=== PATIENT | male | born 1935 | race Hispanic/Latino ===

== ENCOUNTER → 2017-08-18 | Outpatient (CLI) | payer MEDICARE ==
[~2017-08-18] MED LIST: ACETAMINOPHEN325 M1 PO; ASPIR-LOW81 MG PO; FERROUS SULFAT325 M1 PO; FINASTERIDE5 MG PO; FUROSEMIDE40 MG PO; GABAPENTIN100 MG PO; KLONOPIN0.5 MG PO; LATANOPROST2.5 ML OP; LIPITOR10 MG PO; LOPERAMIDE2 MG PO; METOPROLOL TART25 MG PO; MULTI-VITAMIN1 EACH PO; NAMENDA10 MG PO; NORCO 10-325 T1 EACH PO; PANTOPRAZOLE SO40 MG PO; POTASSIUM CHLO20 ME1 PO; REMERON15 MG PO; SENOKOT8.6 MG PO; TAMSULOSIN HCL0.4 MG PO; XARELTO20 MG PO
--- NOTE | 2017-08-18 11:56 | Diagnostic Imaging Report ---
EXAM: Renal Ultrasound INDICATION: \S\MIXED INCONTINENCE COMPARISON: None TECHNIQUE: Transverse and longitudinal images of the kidneys and bladder were obtained. FINDINGS: Right Kidney: Size: 11.5 cm Echogenicity: Normal Parenchymal thickness: Normal Collecting system: No hydronephrosis Stones: None Cyst/Mass: None Left Kidney: Size: 10.9 cm Echogenicity: Normal Parenchymal thickness: Normal Collecting system: No hydronephrosis Stones: None Cyst/Mass: None Bladder: Not fully distended and appears unremarkable. IMPRESSION: Unremarkable renal ultrasound exam. Signed by: Dr. Jn Wright MD on 08/18/2017 11:53 AM
== END ==
LOC: US 09:17
PROVIDERS: ATTEND Urology
DX: N39.46 Mixed incontinence (principal)
CPT/HCPCS: 76770

== ENCOUNTER 2017-09-16 15:36 | Inpatient (IN) | payer MEDICARE ==
[~2017-09-16] VITALS: Ht 175.3 cm; Wt 84.1 kg
--- OUTSIDE RECORDS SUMMARY | 2017-09-16 15:39 | XMS REPORT ---
Author Author [facility] Address Unknown Phone Unavailable Care Team Providers Care Paper Box Cutter Name Role Phone RADHA JUNG Unavailable Unavailable Problems This patient has no known problems. Allergies, Adverse Reactions, Alerts This patient has no known allergies or adverse reactions. Medications This patient has no known medications. Results Test Description Test Time Test Comments Text Results Atomic Results Result Comments US RENAL RETROPERITONEAL COMP [place] [address] Patient Name: RAYNA AYALA MR #: [id number] : 1935 Age/Sex: 82/M Req #: [id number] Adm Physician: Ordered by: RADHA JUNG MD Report #: [id number] Location: US Room/Bed: Procedure: [id number] US/US RENAL RETROPERITONEAL COMP Exam Date: Exam Time: REPORT STATUS: Signed EXAM: Renal Ultrasound INDICATION: COMPARISON: None TECHNIQUE: Transverse and longitudinal images of the kidneys and bladder were obtained. FINDINGS: Right Kidney: Size: 11.5 cm Echogenicity: Normal Parenchymal thickness: Normal Collecting system: No hydronephrosis Stones: None Cyst/Mass: None Left Kidney: Size: 10.9 cm Echogenicity: Normal Parenchymal thickness: Normal Collecting system: No hydronephrosis Stones: None Cyst/Mass: None Bladder: Not fully distended and appears unremarkable. IMPRESSION: Unremarkable renal ultrasound exam. Signed by: Dr. Jn Wright MD on 08/18/2017 11:53 AM Dictated By: JN WRIGHT MD [id number] Transcribed By: STEFFANY on 08/18/17 115 COPY TO: RADHA JUNG MD
[2017-09-16] MEDS ORDERED: CEFTRIAXONE SOD 1 GM VIAL IM ONE (16:15)
[2017-09-16 16:21] LABS: BASOPHILS % 0.3 % (0.0-1.0); HEMATOCRIT 44.6 % (38.2-49.6); HEMOGLOBIN 14.6 g/dL (14.0-18.0); LYMPHOCYTES # (AUTO) 0.2 (1.0-3.2); LYMPHOCYTES % 2.6 % (18.0-39.1); MEAN CORPUSCULAR HEMOGLOBIN 30.4 pg (28-32); MEAN CORPUSCULAR HGB CONC 32.7 g/dL (31-35); MEAN CORPUSCULAR VOLUME 92.9 fL (81-99); MONOCYTES # (AUTO) 0.5 (0.2-0.8); MONOCYTES % 5.8 % (4.4-11.3); NEUTROPHILS # (AUTO) 8.5 (2.1-6.9); NEUTROPHILS % 90.8 % (38.7-80.0); PLATELET COUNT 220 x10e3/uL (140-360); RED CELL DISTRIBUTION WIDTH 18.6 % (11.7-14.4)
[2017-09-16 16:22] LABS: BILIRUBIN,URINE NEGATIVE (NEGATIVE); CLARITY,URINE HAZY (CLEAR); COLOR,URINE YELLOW (YELLOW); KETONES,URINE TRACE (NEGATIVE); LEUKOCYTE ESTERASE ,URINE 2+ (NEGATIVE); NITRITE,URINE NEGATIVE (NEGATIVE); PROTEIN,URINE DIPSTICK NEGATIVE (NEGATIVE); URINE UROBILINOGEN 1 mg/dL (0.2 - 1)
[2017-09-16 16:27] LABS: INR 2.23; PROTHROMBIN TIME 23.2 seconds (11.9-14.5)
[2017-09-16 16:34] LABS: AMORPHOUS SEDIMENT,URINE MODERATE (FEW); BACTERIA,URINE MANY /HPF
[2017-09-16 16:34] LABS: ALANINE AMINOTRANSFERASE 25 IU/L (0-55); ALBUMIN 2.6 g/dL (3.5-5.0); ALBUMIN/GLOBULIN RATIO 0.7 (0.8-2.0); ALKALINE PHOSPHATASE 273 IU/L (40-150); ANION GAP 11.6 mmol/L (8-16); BLOOD UREA NITROGEN 21 mg/dL (7-26); BUN/CREATININE RATIO 22 (6-25); CALCIUM 8.6 mg/dL (8.4-10.2); CARBON DIOXIDE 30 mmol/L (22-29); CHLORIDE 99 mmol/L (98-107); CREATINE KINASE 16 IU/L (30-200); CREATININE, SERUM 0.95 mg/dL (0.72-1.25); EST GLOMERULAR FILTRATION RATE > 60 ML/MIN (60-); GLUCOSE 121 mg/dL (74-118); POTASSIUM 3.6 mmol/L (3.5-5.1); SODIUM 137 mmol/L (136-145)
--- NOTE | 2017-09-16 16:42 | Diagnostic Imaging Report ---
Examination: Single AP view of the chest. COMPARISON: None. INDICATION: Fever, AMS IMPRESSION: 1. Lines and Tubes: Left upper chest multilead cardiac device. 2. Enlarged cardiac silhouette, central pulmonary venous congestion and mild perihilar interstitial edema, likely representing mildly decompensated CHF.. 3. No consolidation or effusion. 4. No acute bony abnormalities. Signed by: Dr. Micha Bell M.D. on 09/16/2017 4:38 PM
[2017-09-16] MEDS ORDERED: DEXTROSE 50% SYRINGE 50 ML IV PRN (17:15)
[2017-09-16] MEDS ORDERED: ASPIRIN 81 MG CHEW TAB PO ONE (17:15)
[2017-09-16] MEDS ORDERED: NORCO 10-325 T1 EACH PO (17:21)
[2017-09-16] MEDS ORDERED: KLONOPIN0.5 MG PO (17:21)
[2017-09-16] MEDS ORDERED: FUROSEMIDE40 MG PO (17:21)
[2017-09-16] MEDS ORDERED: NAMENDA10 MG PO (17:21)
[2017-09-16] MEDS ORDERED: MULTI-VITAMIN1 EACH PO (17:21)
[2017-09-16] MEDS ORDERED: METOPROLOL TART25 MG PO (17:21)
[2017-09-16] MEDS ORDERED: FINASTERIDE5 MG PO (17:21)
[2017-09-16] MEDS ORDERED: FERROUS SULFAT325 M1 PO (17:21)
[2017-09-16] MEDS ORDERED: ASPIR-LOW81 MG PO (17:21)
[2017-09-16] MEDS ORDERED: LATANOPROST2.5 ML OP (17:21)
[2017-09-16] MEDS ORDERED: GABAPENTIN100 MG PO (17:21)
[2017-09-16] MEDS ORDERED: LOPERAMIDE2 MG PO (17:21)
[2017-09-16] MEDS ORDERED: ACETAMINOPHEN325 M1 PO (17:26)
[2017-09-16] MEDS ORDERED: POTASSIUM CHLO20 ME1 PO (17:26)
[2017-09-16] MEDS ORDERED: PANTOPRAZOLE SO40 MG PO (17:26)
[2017-09-16] MEDS ORDERED: TAMSULOSIN HCL0.4 MG PO (17:26)
[2017-09-16] MEDS ORDERED: SENOKOT8.6 MG PO (17:26)
[2017-09-16] MEDS ORDERED: XARELTO20 MG PO (17:26)
[2017-09-16] MEDS: HYDROCODONE/APAP 10MG-325MG TAB PO PRN (17:30)
[2017-09-16] MEDS: SODIUM CHLORIDE 0.9% 1000ML 1,000 ML IV SCH (17:30)
[2017-09-16 20:54] VITALS: BP 161/67
[2017-09-16] MEDS: INSULIN REGULAR, HUMAN 100 UNIT/1 ML 3ML VIAL SQ SCH (21:00)
[2017-09-17] VITALS (8 sets, daily range): BP systolic 122–161; BP diastolic 56–80
--- NOTE | 2017-09-17 00:26 | Consultation ---
DATE OF CONSULTATION: September 16, 2017 CARDIOLOGY CONSULTATION NOTE REASON FOR CONSULTATION: Chest pain. HISTORY: Mr. Almeida is a patient of mine for the last several years. He comes into the emergency room from his [facility] with complaints of fever, shaking chills as well as chest pain. He has peripheral arterial disease. He underwent recent intervention on both his lower extremities successfully. He has bilateral transmet amputations. He lives in a fdc. At the time of admission, his temperature was 100 degrees Fahrenheit, and his chest x-ray showed mildly decompensated heart failure. PAST MEDICAL, SOCIAL, AND FAMILY HISTORY: Unchanged from prior visit. ALLERGIES: NO KNOWN DRUG ALLERGIES. REVIEW OF SYSTEMS: Unobtainable. PHYSICAL EXAMINATION: VITAL SIGNS: Temperature 100 degrees, heart rate 80, blood pressure 127/80. O2 sat is 96%. CARDIOVASCULAR: Regular rhythm. S4 gallop. LUNGS: Decreased breath sounds. Occasional rhonchi. EXTREMITIES: Pedal pulses are trace positive. LABORATORY DATA: Hemoglobin is 14.6. Serum creatinine is normal. Cardiac enzymes are negative. ASSESSMENT: 1. Atypical chest pain. 2. Peripheral arterial disease. 3. Atrial fibrillation. RECOMMENDATIONS: Anticoagulation should be continued. The patient was scheduled for a stress test in my office. We will perform this while he is inpatient in the hospital. I thank Dr. Lakhani for this consultation. Job#: [id number]
[2017-09-17 03:27] LABS: BASOPHILS % 0.3 % (0.0-1.0); EOSINOPHILS % 0.1 % (0.0-6.0); HEMOGLOBIN 14.5 g/dL (14.0-18.0); LYMPHOCYTES # (AUTO) 0.4 (1.0-3.2); LYMPHOCYTES % 4.4 % (18.0-39.1); MEAN CORPUSCULAR HEMOGLOBIN 30.7 pg (28-32); MEAN CORPUSCULAR VOLUME 93.2 fL (81-99); MONOCYTES # (AUTO) 0.8 (0.2-0.8); MONOCYTES % 8.1 % (4.4-11.3); NEUTROPHILS # (AUTO) 8.3 (2.1-6.9); NEUTROPHILS % 86.5 % (38.7-80.0); PLATELET COUNT 218 x10e3/uL (140-360); RED BLOOD COUNT 4.72 x10e6/uL (4.3-5.7); RED CELL DISTRIBUTION WIDTH 18.6 % (11.7-14.4)
[2017-09-17 03:28] LABS: CREATINE KINASE MB 1.1 ng/mL (0-5.0)
[2017-09-17 03:47] LABS: ANION GAP 15.7 mmol/L (8-16); BLOOD UREA NITROGEN 22 mg/dL (7-26); BUN/CREATININE RATIO 26 (6-25); CALCIUM 8.6 mg/dL (8.4-10.2); CARBON DIOXIDE 27 mmol/L (22-29); CHLORIDE 101 mmol/L (98-107); CREATININE, SERUM 0.86 mg/dL (0.72-1.25); EST GLOMERULAR FILTRATION RATE > 60 ML/MIN (60-); GLUCOSE 118 mg/dL (74-118); POTASSIUM 3.7 mmol/L (3.5-5.1); SODIUM 140 mmol/L (136-145)
[2017-09-17] MEDS: INSULIN REGULAR, HUMAN 100 UNIT/1 ML 3ML VIAL SQ SCH ×4 (07:30→19:59)
[2017-09-17] MEDS: HYDROCODONE/APAP 10MG-325MG TAB PO PRN (08:49)
[2017-09-17] MEDS: ASPIRIN 81 MG ENTERIC COATED PO SCH (08:49)
[2017-09-17 11:28] LABS: CREATINE KINASE MB 1.4 ng/mL (0-5.0)
[2017-09-17] MEDS ORDERED: LOPERAMIDE HCL 2 MG CAP PO PRN (11:45)
--- NOTE | 2017-09-17 12:50 | Diagnostic Imaging Report ---
EXAM: XR CHEST 1 VIEW DATE: 09/17/2017 7:00 AM INDICATION: CHF, fever COMPARISON: 09/16/2017 FINDINGS: Lines and Tubes: Left chest wall pacemaker with lead overlying right ventricle and coronary sinus. Heart and Mediastinum: Heart is enlarged. Tortuous aorta. Lungs and Pleura: Scattered mild to moderate bilateral airspace opacities. Bones and Soft Tissues: No acute findings. IMPRESSION: 1. Enlarged cardiac silhouette with mild to moderate edema. Superimposed pneumonia not excluded. Signed by: Dr. Nain Middleton MD on 09/17/2017 12:46 PM
[2017-09-17] MEDS: SODIUM CHLORIDE 0.9% 1000ML 1,000 ML IV SCH (13:12)
--- NOTE | 2017-09-17 15:36 | Progress Note ---
DATE: September 17, 2017 CARDIOLOGY PROGRESS NOTE SUBJECTIVE: Patient is without any complaints this morning. He denies any chest pain or shortness of breath. States that he is tired. CARDIOVASCULAR MEDICATIONS: Aspirin 81 mg p.o. daily. OBJECTIVE: VITAL SIGNS: Temperature 97.3, pulse 79, respiratory rate 18, blood pressure 130/60, oxygen saturation 96% on room air. GENERAL: Alert and oriented x2, resting comfortably in bed, does not appear to be in any acute distress. CARDIOVASCULAR: Regular rate and rhythm. S4 gallop. LUNGS: Diminished breath sounds posterior lower lobes, otherwise scattered rhonchi. No wheezing or crackles noted. ABDOMEN: Rounded, soft, nontender. EXTREMITIES: Lower extremities, trace pedal pulses. LABS: WBC 9.60, hemoglobin 14.5, hematocrit 44.0, and platelets 218. Sodium 140, potassium 3.7, BUN 22, creatinine 0.86. PT 23.2, INR 2.23. Chest x-ray reviewed from yesterday with no acute bony abnormality, no consolidation or effusion, central pulmonary venous congestion, mildly decompensated CHF. TELEMETRY: Ventricularly paced rhythm. ASSESSMENT 1. Atypical chest pain. 2. Peripheral arterial disease, status post multiple interventions recently. 3. Permanent atrial fibrillation. 4. Recent transmetatarsal amputation. RECOMMENDATIONS: We will be reconciling meds this morning. Continuation of home meds including anticoagulation. Scheduled for a stress test tomorrow morning. Monitor closely. We will continue to follow closely. Dictated By: Micheline Sanchez NP Job#: [id number] [facility]
[2017-09-17] MEDS: CLONAZEPAM 0.5 MG TAB PO SCH ×2 (16:49→20:42)
[2017-09-17] MEDS: GABAPENTIN 100 MG CAP PO SCH ×2 (16:49→20:42)
[2017-09-17] MEDS: CEFTRIAXONE SOD 1 GM VIAL IV SCH (16:49)
[2017-09-17] MEDS: FUROSEMIDE 20 MG TAB PO SCH (16:49)
[2017-09-17] MEDS: MEMANTINE 10 MG TAB PO SCH (16:49)
[2017-09-17] MEDS: LATANOPROST(OPTH) 2.5 ML BTL OP SCH ×2 (20:42→20:47)
[2017-09-17] MEDS: FINASTERIDE 5 MG TAB PO SCH (20:43)
[2017-09-18] VITALS (7 sets, daily range): BP systolic 131–153; BP diastolic 59–70
[2017-09-18] MEDS: INSULIN REGULAR, HUMAN 100 UNIT/1 ML 3ML VIAL SQ SCH ×4 (07:30→21:00)
[2017-09-18] MEDS: PANTOPRAZOLE SOD 40 MG TABEC PO SCH (07:30)
[2017-09-18] MEDS ORDERED: REGADENOSON 0.4 MG/5 ML SYR IV ONE (08:09)
[2017-09-18] MEDS: FUROSEMIDE 20 MG TAB PO SCH ×2 (09:00→16:24)
[2017-09-18] MEDS: GABAPENTIN 100 MG CAP PO SCH ×3 (09:00→22:17)
[2017-09-18] MEDS: POTASSIUM CHLORIDE 20 MEQ TAB CR PO SCH (09:00)
[2017-09-18] MEDS: ASPIRIN 81 MG CHEW TAB PO SCH (09:00)
[2017-09-18] MEDS: SENNOSIDES 8.6 MG TAB PO SCH (09:00)
[2017-09-18] MEDS: FERROUS SULFATE 325 MG TAB PO SCH (09:00)
[2017-09-18] MEDS: ASPIRIN 81 MG ENTERIC COATED PO SCH (09:00)
[2017-09-18] MEDS: TAMSULOSIN HCL 0.4 MG CAP PO SCH (09:00)
[2017-09-18] MEDS: MEMANTINE 10 MG TAB PO SCH ×2 (09:00→16:24)
[2017-09-18] MEDS: MULTIVITAMINS/MINERALS TAB PO SCH (09:00)
[2017-09-18] MEDS: RIVAROXABAN 20 MG TABLET PO SCH (09:00)
[2017-09-18] MEDS: METOPROLOL TARTRATE 25 MG TAB PO SCH (09:00)
[2017-09-18] MEDS: CLONAZEPAM 0.5 MG TAB PO SCH ×3 (09:00→22:17)
[2017-09-18] MEDS: CEFTRIAXONE SOD 1 GM VIAL IV SCH (16:24)
--- NOTE | 2017-09-18 19:35 | Cardiology Report ---
DATE OF STUDY: September 18, 2017 PROCEDURE TITLE Rest stress single isotope SPECT imaging with pharmacologic stress and gated SPECT imaging. INDICATIONS: Chest pain. PROCEDURE: Pharmacologic stress testing was performed with regadenoson per protocol. Heart rate was 80 beats per minute at rest and increased to 83 beats per minute during the regadenoson infusion. The rest blood pressure was is 130/70 and increased to 151/71 mmHg, which is a normal response. The patient did not develop any significant symptoms during the procedure. Resting electrocardiogram demonstrated V-paced. There were no ST segment changes consistent with myocardial ischemia. Occasional PVCs were noted in recovery. Myocardial perfusion imaging was performed at rest following the injection of 10.3 millicuries of tetrofosmin. At peak pharmacologic effect, the patient was injected with 29 mCi of tetrofosmin. Gated post stress tomographic imaging was performed. FINDINGS: The overall quality of the study is fair. Left ventricular cavity is noted to be normal size on the rest and stress studies. SPECT images demonstrate a small mild inferolateral perfusion defect at rest that improves but does not completely reverse with stress. Gated SPECT imaging demonstrates hypokinesis of the inferolateral wall. The left ventricular ejection pressure was calculated to be 57%. IMPRESSION: Myocardial perfusion imaging is abnormal. There is a small non-transmural scar in the inferolateral wall. Overall left ventricular systolic function is normal. Overall left ventricular systolic function was normal with regional wall abnormalities as documented above. Job#: [id number] GH cc: YI HARRIS MD MTDD
[2017-09-18] MEDS: LATANOPROST(OPTH) 2.5 ML BTL OP SCH (21:00)
[2017-09-18] MEDS: SODIUM CHLORIDE 0.9% 1000ML 1,000 ML IV SCH (22:16)
[2017-09-18] MEDS: FINASTERIDE 5 MG TAB PO SCH (22:17)
[2017-09-19] VITALS (8 sets, daily range): BP systolic 105–148; BP diastolic 57–73
[2017-09-19] MEDS ORDERED: MEROPENEM 1GM 100 ML IV SCH (04:30)
[2017-09-19] MEDS: SODIUM CHLORIDE 0.9% 1000ML 1,000 ML IV SCH (05:12)
[2017-09-19] MEDS ORDERED: MEROPENEM 1 GM VIAL ONE (05:54)
[2017-09-19] MEDS: INSULIN REGULAR, HUMAN 100 UNIT/1 ML 3ML VIAL SQ SCH ×4 (07:30→21:00)
[2017-09-19] MEDS: PANTOPRAZOLE SOD 40 MG TABEC PO SCH (10:18)
[2017-09-19] MEDS: FERROUS SULFATE 325 MG TAB PO SCH (10:18)
[2017-09-19] MEDS: TAMSULOSIN HCL 0.4 MG CAP PO SCH (10:18)
[2017-09-19] MEDS: ASPIRIN 81 MG ENTERIC COATED PO SCH (10:18)
[2017-09-19] MEDS: ASPIRIN 81 MG CHEW TAB PO SCH (10:18)
[2017-09-19] MEDS: MEMANTINE 10 MG TAB PO SCH ×2 (10:19→17:01)
[2017-09-19] MEDS: CLONAZEPAM 0.5 MG TAB PO SCH ×3 (10:19→22:30)
[2017-09-19] MEDS: POTASSIUM CHLORIDE 20 MEQ TAB CR PO SCH (10:19)
[2017-09-19] MEDS: FUROSEMIDE 20 MG TAB PO SCH ×2 (10:19→17:00)
[2017-09-19] MEDS: RIVAROXABAN 20 MG TABLET PO SCH (10:19)
[2017-09-19] MEDS: SENNOSIDES 8.6 MG TAB PO SCH (10:19)
[2017-09-19] MEDS: MULTIVITAMINS/MINERALS TAB PO SCH (10:19)
[2017-09-19] MEDS: GABAPENTIN 100 MG CAP PO SCH ×3 (10:19→22:30)
[2017-09-19] MEDS: METOPROLOL TARTRATE 25 MG TAB PO SCH (10:19)
--- NOTE | 2017-09-19 18:35 | Progress Note ---
DATE: September 19, 2017 CARDIOLOGY PROGRESS NOTE SUBJECTIVE: The patient denies chest pain or shortness of breath. OBJECTIVE VITALS: Temperature 97.9 degrees, pulse 80, respiratory rate 19, blood pressure 136/73, oxygen saturation 96% on room air. GENERAL: Awake, alert and in no acute distress. LUNGS: Clear to auscultation bilaterally. No wheezes or crackles. CARDIOVASCULAR: Normal rate. Regular rhythm. No murmur. ABDOMEN: Soft and nontender. EXTREMITIES: No edema. CARDIAC MEDICATIONS 1. Xarelto 20 mg p.o. daily. 2. Metoprolol tartrate 75 mg p.o. daily. 3. Lasix 20 mg p.o. b.i.d. 4. Aspirin 81 mg p.o. daily. LABS: None today. Telemetry is V-paced. IMPRESSION 1. Atypical chest pain. 2. Peripheral arterial disease: Status post multiple interventions. 3. Permanent atrial fibrillation. 4. Recent transmetatarsal amputation. RECOMMENDATIONS: Continue current cardiac medications. Stress test was without evidence of ischemia. The patient can be discharged from a cardiac standpoint. Thank you for this consult. We will continue to follow. Job#: [id number] OR
[2017-09-19] MEDS: MEROPENEM 1 GM VIAL IV SCH (19:19)
[2017-09-19] MEDS: LATANOPROST(OPTH) 2.5 ML BTL OP SCH (21:00)
[2017-09-19] MEDS: FINASTERIDE 5 MG TAB PO SCH (22:30)
[2017-09-20] VITALS (7 sets, daily range): BP systolic 131–169; BP diastolic 60–76
[2017-09-20] MEDS: SODIUM CHLORIDE 0.9% 1000ML 1,000 ML IV SCH (01:12)
[2017-09-20] MEDS: MEROPENEM 1 GM VIAL IV SCH ×2 (05:58→16:52)
[2017-09-20] MEDS: INSULIN REGULAR, HUMAN 100 UNIT/1 ML 3ML VIAL SQ SCH ×4 (07:30→21:00)
[2017-09-20] MEDS: TAMSULOSIN HCL 0.4 MG CAP PO SCH (09:48)
[2017-09-20] MEDS: PANTOPRAZOLE SOD 40 MG TABEC PO SCH (09:48)
[2017-09-20] MEDS: ASPIRIN 81 MG CHEW TAB PO SCH (09:48)
[2017-09-20] MEDS: FERROUS SULFATE 325 MG TAB PO SCH (09:48)
[2017-09-20] MEDS: METOPROLOL TARTRATE 25 MG TAB PO SCH (09:51)
[2017-09-20] MEDS: GABAPENTIN 100 MG CAP PO SCH ×3 (09:51→21:06)
[2017-09-20] MEDS: FUROSEMIDE 20 MG TAB PO SCH ×2 (09:51→16:52)
[2017-09-20] MEDS: POTASSIUM CHLORIDE 20 MEQ TAB CR PO SCH (09:51)
[2017-09-20] MEDS: MULTIVITAMINS/MINERALS TAB PO SCH (09:51)
[2017-09-20] MEDS: MEMANTINE 10 MG TAB PO SCH ×2 (09:51→16:52)
[2017-09-20] MEDS: CLONAZEPAM 0.5 MG TAB PO SCH ×3 (09:51→21:06)
[2017-09-20] MEDS: RIVAROXABAN 20 MG TABLET PO SCH (09:51)
[2017-09-20] MEDS: SENNOSIDES 8.6 MG TAB PO SCH (09:51)
--- NOTE | 2017-09-20 11:20 | Diagnostic Imaging Report ---
PROCEDURE:ABDOMINAL ULTRASOUND COMPARISON:None. INDICATIONS:r/o infection FINDINGS: Liver: 14.8 cm. Normal hepatic parenchymal echogenicity. No focal mass. Main portal vein: 1.4 cm. Hepatopedal flow. Gallbladder: Multiple echogenic mobile gallstones are present. No gallbladder wall thickening or pericholecystic fluid. The gallbladder is nondistended. Common Bile Duct: 3.0 mm. No echogenic filling defect. Sonographic Geiger's sign: Normal. Right kidney: 12.8 cm. No solid or cystic mass, echogenic calculi, or hydronephrosis. Normal parenchymal echogenicity. Left kidney: 11.7 cm. No solid or cystic mass, echogenic calculi, or hydronephrosis. Normal parenchymal echogenicity. Spleen: 13.0 cm. No focal mass. The pancreas, aorta, and inferior vena cava were insufficiently visualized for comment secondary to overlying bowel gas. Ascites: None. CONCLUSION: Cholelithiasis. No sonographic evidence of cholecystitis. Dictated by: Jeremy Rosales M.D. on 09/20/2017 at 11:21 Electronically approved by: Jeremy Rosales M.D. on 09/20/2017 at 11:21
[2017-09-20] MEDS: ACETAMINOPHEN 325 MG TAB PO PRN (12:57)
--- NOTE | 2017-09-20 15:14 | Consultation ---
DATE OF CONSULTATION: September 19, 2017 REASON FOR CONSULTATION: Recommendation for antibiotic. HISTORY OF PRESENT ILLNESS: Patient is an 82-year-old male, who comes to emergency room because of not feeling well, fever, chills. The patient who has history of dementia, is not able to provide any information. The patient has history of atrial fibrillation. He also has some chest pain. He was seen by cardiology. The patient was admitted. Infectious disease was consulted. Patient is not able to provide any information. LABORATORY DATA: Reviewed. His blood culture showing E. coli. His urine culture showing E. coli. data reviewed. MEDICATION: List reviewed. He is on meropenem, Namenda, Lasix, Senokot, multivitamin, iron sulfate, Tylenol. PAST MEDICAL HISTORY: As above. PAST SURGICAL HISTORY: Cannot be obtained. ALLERGIES: NKA. SOCIAL HISTORY: From the care home. PHYSICAL EXAMINATION GENERAL: He is currently alert, oriented, does not seem to be in acute distress. VITALS: Stable. Currently afebrile. HEENT: Anicteric. NECK: Supple. CHEST: Clear. ABDOMEN: Soft. IMPRESSIONS 1. Sepsis with Escherichia coli. He also had Proteus mirabilis in the urine, which was multidrug resistant. Agree with meropenem. Obtain ultrasound of the abdomen to rule out other possibilities because bacteria in the blood is different than the bacteria in the urine. Recheck blood cultures. Plan on 14 days of antibiotic. 2. Dementia. 3. Will follow with you. Job#: [id number] CQ
--- NOTE | 2017-09-20 17:58 | Progress Note ---
DATE: September 20, 2017 INFECTIOUS DISEASE PROGRESS NOTE SUBJECTIVE: Mr. Almeida is about the same, confused, does not seem to be in acute distress. No chest pain. REVIEW OF SYSTEMS: Otherwise unremarkable. Patient is still on Xarelto, Lasix and aspirin. His laboratory data reviewed. His white count 9.6, hemoglobin 14. His sodium 140, potassium 3.7, creatinine 0.86. Bilirubin of 2.6. Alkaline phosphatase of 273. He had ultrasound of the abdomen which showed cholelithiasis, no evidence of cholecystitis. PHYSICAL EXAMINATION GENERAL: He is currently alert, does not seem to be in acute distress. VITAL SIGNS: Stable. Afebrile. HEENT: He does not appear icteric. NECK: Supple. CHEST: Clear. HEART: S1 and S2. No S3 or S4, no murmur. ABDOMEN: Soft. Bowel sounds present. No tenderness. EXTREMITIES: No edema. SKIN: No rash. IMPRESSION: Sepsis with Escherichia coli. Will check blood cultures. Source unclear, may be UTI. Will check amylase, lipase and liver enzymes and will follow with you. Job#: [id number] EV
[2017-09-20] MEDS: LATANOPROST(OPTH) 2.5 ML BTL OP SCH (21:00)
[2017-09-20] MEDS: FINASTERIDE 5 MG TAB PO SCH (21:06)
--- NOTE | 2017-09-20 21:35 | Progress Note ---
DATE: September 20, 2017 CARDIOLOGY PROGRESS NOTE SUBJECTIVE: The patient denies chest pain or shortness of breath. OBJECTIVE VITAL SIGNS: Temperature 97.5 degrees, pulse 80, respiratory rate 10, blood pressure 159/65, oxygen saturation 96% on room air. GENERAL: Awake, alert and in no acute distress. LUNGS: Clear to auscultation bilaterally. No wheezes or crackles. CARDIOVASCULAR: Normal rate. Regular rhythm. No murmur. Normal S1 and S2. ABDOMEN: Soft and nontender. EXTREMITIES: Status post bilateral TMA. CARDIAC MEDICATIONS 1. Xarelto 20 mg p.o. daily. 2. Metoprolol tartrate 75 mg p.o. daily. 3. Lasix 20 mg p.o. b.i.d. 4. Aspirin 81 mg p.o. daily. LABS: None today. TELEMETRY: V-paced. IMPRESSION 1. Escherichia coli bacteremia. 2. Sepsis. 3. Atypical chest pain. 4. Peripheral arterial disease: Status post multiple interventions. 5. Permanent atrial fibrillation. 6. Recent transmetatarsal amputation. RECOMMENDATIONS: Continue current cardiac medications. Stress test is without evidence of ischemia. No further cardiac evaluation is indicated at this time. IV antibiotics per infectious disease. Thank you for this consult. We will continue to follow. Job#: [id number]
[2017-09-21] VITALS (7 sets, daily range): BP systolic 124–162; BP diastolic 58–68
[2017-09-21] MEDS: MEROPENEM 1 GM VIAL IV SCH ×2 (05:46→17:59)
[2017-09-21 06:00] LABS: BASOPHILS % 0.9 % (0.0-1.0); EOSINOPHILS # (AUTO) 0.3 (0.0-0.4); EOSINOPHILS % 6.2 % (0.0-6.0); HEMATOCRIT 42.5 % (38.2-49.6); HEMOGLOBIN 13.7 g/dL (14.0-18.0); LYMPHOCYTES # (AUTO) 0.7 (1.0-3.2); LYMPHOCYTES % 16.8 % (18.0-39.1); MEAN CORPUSCULAR HEMOGLOBIN 30.2 pg (28-32); MEAN CORPUSCULAR HGB CONC 32.2 g/dL (31-35); MEAN CORPUSCULAR VOLUME 93.8 fL (81-99); MONOCYTES # (AUTO) 0.5 (0.2-0.8); MONOCYTES % 11.3 % (4.4-11.3); NEUTROPHILS # (AUTO) 2.8 (2.1-6.9); NEUTROPHILS % 64.3 % (38.7-80.0); PLATELET COUNT 241 x10e3/uL (140-360); RED BLOOD COUNT 4.53 x10e6/uL (4.3-5.7); RED CELL DISTRIBUTION WIDTH 17.5 % (11.7-14.4)
[2017-09-21 06:28] LABS: ALBUMIN 2.1 g/dL (3.5-5.0); BILIRUBIN,DIRECT 0.4 mg/dL (0.0-0.5)
[2017-09-21] MEDS: INSULIN REGULAR, HUMAN 100 UNIT/1 ML 3ML VIAL SQ SCH ×4 (07:30→21:00)
[2017-09-21] MEDS: PANTOPRAZOLE SOD 40 MG TABEC PO SCH (07:49)
[2017-09-21] MEDS: MEMANTINE 10 MG TAB PO SCH ×2 (10:02→17:59)
[2017-09-21] MEDS: CLONAZEPAM 0.5 MG TAB PO SCH ×3 (10:02→21:11)
[2017-09-21] MEDS: MULTIVITAMINS/MINERALS TAB PO SCH (10:02)
[2017-09-21] MEDS: POTASSIUM CHLORIDE 20 MEQ TAB CR PO SCH (10:02)
[2017-09-21] MEDS: METOPROLOL TARTRATE 25 MG TAB PO SCH (10:02)
[2017-09-21] MEDS: FUROSEMIDE 20 MG TAB PO SCH ×2 (10:02→17:59)
[2017-09-21] MEDS: RIVAROXABAN 20 MG TABLET PO SCH (10:02)
[2017-09-21] MEDS: GABAPENTIN 100 MG CAP PO SCH ×3 (10:02→21:11)
[2017-09-21] MEDS: SENNOSIDES 8.6 MG TAB PO SCH (10:02)
[2017-09-21] MEDS: FERROUS SULFATE 325 MG TAB PO SCH (10:02)
[2017-09-21] MEDS: TAMSULOSIN HCL 0.4 MG CAP PO SCH (10:02)
[2017-09-21] MEDS: ASPIRIN 81 MG CHEW TAB PO SCH (10:02)
--- NOTE | 2017-09-21 13:31 | Progress Note ---
DATE: September 21, 2017 SUBJECTIVE: The patient denies chest pain or shortness of breath. He reports pain at his TMA stump. OBJECTIVE VITAL SIGNS: Temperature 96.5 degrees, pulse 88, respiratory rate 20, blood pressure 162/67, and oxygen saturation 95% on room air. GENERAL: Awake and alert, in no acute distress. LUNGS: Clear to auscultation bilaterally. No wheezes or crackles. CARDIOVASCULAR: Normal rate. Regular rhythm. No murmur. Normal S1 and S2. ABDOMEN: Soft and nontender. EXTREMITIES: Status post bilateral TMA. No edema. CARDIAC MEDICATIONS 1. Rivaroxaban 20 mg p.o. daily. 2. Metoprolol tartrate 75 mg p.o. daily. 3. Furosemide 20 mg p.o. b.i.d. 4. Aspirin 81 mg p.o. daily. LABS: WBC 4.35, hemoglobin 13.7, hematocrit 42.5, and platelets 241. TELEMETRY: V-paced. IMPRESSION 1. Escherichia coli bacteremia. 2. Proteus mirabilis urinary tract infection. 3. Sepsis secondary to above. 4. Atypical chest pain. 5. Peripheral arterial disease, status post multiple interventions. 6. Permanent atrial fibrillation. 7. Recent transmetatarsal amputation. RECOMMENDATIONS: Continue current cardiac medications. 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 No further cardiac evaluation is indicated at this time. IV antibiotics per infectious disease. Thank you for this consult. We will continue to follow. Job#: [id number] KAYE
[2017-09-21] MEDS: ACETAMINOPHEN 325 MG TAB PO PRN (17:59)
[2017-09-21] MEDS: LATANOPROST(OPTH) 2.5 ML BTL OP SCH (21:00)
[2017-09-21] MEDS: FINASTERIDE 5 MG TAB PO SCH (21:11)
[2017-09-22] VITALS (7 sets, daily range): BP systolic 106–143; BP diastolic 57–70
[2017-09-22] MEDS: MEROPENEM 1 GM VIAL IV SCH ×2 (05:36→17:10)
[2017-09-22] MEDS: INSULIN REGULAR, HUMAN 100 UNIT/1 ML 3ML VIAL SQ SCH ×4 (07:30→20:58)
[2017-09-22] MEDS: PANTOPRAZOLE SOD 40 MG TABEC PO SCH (08:30)
[2017-09-22] MEDS: TAMSULOSIN HCL 0.4 MG CAP PO SCH (08:50)
[2017-09-22] MEDS: CLONAZEPAM 0.5 MG TAB PO SCH ×3 (08:50→20:58)
[2017-09-22] MEDS: FERROUS SULFATE 325 MG TAB PO SCH (08:50)
[2017-09-22] MEDS: ASPIRIN 81 MG CHEW TAB PO SCH (08:50)
[2017-09-22] MEDS: FUROSEMIDE 20 MG TAB PO SCH ×2 (08:50→16:24)
[2017-09-22] MEDS: MEMANTINE 10 MG TAB PO SCH ×2 (08:51→16:24)
[2017-09-22] MEDS: METOPROLOL TARTRATE 25 MG TAB PO SCH (08:51)
[2017-09-22] MEDS: SENNOSIDES 8.6 MG TAB PO SCH (08:51)
[2017-09-22] MEDS: POTASSIUM CHLORIDE 20 MEQ TAB CR PO SCH (08:51)
[2017-09-22] MEDS: RIVAROXABAN 20 MG TABLET PO SCH (08:51)
[2017-09-22] MEDS: MULTIVITAMINS/MINERALS TAB PO SCH (08:51)
[2017-09-22] MEDS: GABAPENTIN 100 MG CAP PO SCH ×3 (08:51→20:58)
--- NOTE | 2017-09-22 12:54 | Progress Note ---
DATE: September 22, 2017 CARDIOLOGY PROGRESS NOTE SUBJECTIVE: Patient denies chest pain or shortness of breath. OBJECTIVE VITAL SIGNS: Temperature 96.1 degrees, pulse 88, respiratory rate 18, blood pressure 142/69, oxygen saturation 97% on room air. GENERAL: Awake, alert, in no acute distress. LUNGS: Clear to auscultation bilaterally. No wheezes or crackles. CARDIOVASCULAR: Normal rate, regular rhythm. No murmur. Normal S1 and S2. ABDOMEN: Soft, nontender. EXTREMITIES: Status post bilateral TMA. No edema. CARDIAC MEDICATIONS 1. Rivaroxaban 20 mg p.o. daily. 2. Metoprolol tartrate 75 mg p.o. daily. 3. Furosemide 20 mg p.o. b.i.d. 4. Aspirin 81 mg p.o. daily. LABS: None today. TELEMETRY: V-paced. IMPRESSION 1. Escherichia coli bacteremia. 2. Proteus mirabilis urinary tract infection. 3. Sepsis secondary to above. 4. Atypical chest pain. 5. Peripheral arterial disease status post multiple interventions. 6. Permanent atrial fibrillation. 7. Recent transmetatarsal amputation. RECOMMENDATIONS: Continue current cardiac medications. 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 No further cardiac evaluation is indicated at this time. IV antibiotics per Infectious Disease. Thank you for this consult. We will continue to follow. Job#: [id number] EV
[2017-09-22] MEDS: FINASTERIDE 5 MG TAB PO SCH (20:58)
[2017-09-22] MEDS: LATANOPROST(OPTH) 2.5 ML BTL OP SCH (20:58)
[2017-09-23 00:11] VITALS: BP 126/58
[2017-09-23 04:00] VITALS: BP 136/68
[2017-09-23] MEDS: MEROPENEM 1 GM VIAL IV SCH ×2 (05:53→17:43)
[2017-09-23] MEDS: INSULIN REGULAR, HUMAN 100 UNIT/1 ML 3ML VIAL SQ SCH ×4 (07:30→20:15)
[2017-09-23 08:00] VITALS: BP 138/65
[2017-09-23] MEDS: PANTOPRAZOLE SOD 40 MG TABEC PO SCH (08:00)
[2017-09-23] MEDS: ASPIRIN 81 MG CHEW TAB PO SCH (09:15)
[2017-09-23] MEDS: FERROUS SULFATE 325 MG TAB PO SCH (09:15)
[2017-09-23] MEDS: TAMSULOSIN HCL 0.4 MG CAP PO SCH (09:15)
[2017-09-23] MEDS: MEMANTINE 10 MG TAB PO SCH ×2 (09:16→16:27)
[2017-09-23] MEDS: FUROSEMIDE 20 MG TAB PO SCH ×2 (09:16→16:27)
[2017-09-23] MEDS: METOPROLOL TARTRATE 25 MG TAB PO SCH (09:16)
[2017-09-23] MEDS: MULTIVITAMINS/MINERALS TAB PO SCH (09:16)
[2017-09-23] MEDS: SENNOSIDES 8.6 MG TAB PO SCH (09:16)
[2017-09-23] MEDS: CLONAZEPAM 0.5 MG TAB PO SCH ×3 (09:16→20:59)
[2017-09-23] MEDS: GABAPENTIN 100 MG CAP PO SCH ×3 (09:16→20:53)
[2017-09-23] MEDS: RIVAROXABAN 20 MG TABLET PO SCH (09:16)
[2017-09-23] MEDS: POTASSIUM CHLORIDE 20 MEQ TAB CR PO SCH (09:17)
[2017-09-23 12:00] VITALS: BP 165/75
--- NOTE | 2017-09-23 15:06 | Progress Note ---
DATE: September 23, 2017 CARDIOLOGY PROGRESS NOTE SUBJECTIVE: Denies chest pain or shortness of breath. No complaints today. Telemetry, paced rhythm. OBJECTIVE VITAL SIGNS: Heart rate 80, temperature 96.4, respiratory rate 18, blood pressure 138/65, O2 sat 96% on room air. GENERAL: No acute distress, alert. NECK: No JVD. CHEST: Clear to auscultation. CARDIOVASCULAR: Regular rate and rhythm. Normal S1 and S2. Systolic ejection murmur. ABDOMEN: Soft. EXTREMITIES: No edema. Right TMA. Socks in place. CARDIOVASCULAR MEDICATIONS 1. Xarelto 20 mg daily. 2. Metoprolol tartrate 75 mg daily, will change for extended-release formulation. 3. Furosemide 20 mg b.i.d. 4. Aspirin 81 mg daily. LABS: For today, glucose is 121. ASSESSMENT 1. Status post bilateral transmetatarsal amputation. 2. Peripheral arterial disease, requiring multiple interventions. 3. Persistent atrial fibrillation. 4. Atypical chest pain. 5. Sepsis secondary to Escherichia coli bacteremia and Proteus mirabilis urinary tract infection. RECOMMENDATIONS: Continue current cardiovascular medications. No transmural scar in the inferolateral wall noted on stress test. No additional areas of ischemia observed. No further coronary interventions at this point in time. Continue antibiotics per ID. Appreciate the opportunity to care for Mr. Almeida. Job#: [id number] EFRAÍN
[2017-09-23 16:00] VITALS: BP 159/74
[2017-09-23 19:10] VITALS: BP 121/58
[2017-09-23] MEDS: FINASTERIDE 5 MG TAB PO SCH (20:53)
[2017-09-23] MEDS: LATANOPROST(OPTH) 2.5 ML BTL OP SCH (20:59)
[2017-09-24 00:30] VITALS: BP 144/63
[2017-09-24 05:00] VITALS: BP 139/63
[2017-09-24] MEDS: MEROPENEM 1 GM VIAL IV SCH ×2 (05:49→17:08)
[2017-09-24] MEDS: INSULIN REGULAR, HUMAN 100 UNIT/1 ML 3ML VIAL SQ SCH ×4 (07:30→20:41)
[2017-09-24] MEDS: PANTOPRAZOLE SOD 40 MG TABEC PO SCH (07:30)
[2017-09-24 08:00] VITALS: BP_SYST 138; BP_SYST 144; BP_DIAS 67; BP_DIAS 69
[2017-09-24] MEDS: ASPIRIN 81 MG CHEW TAB PO SCH (09:09)
[2017-09-24] MEDS: TAMSULOSIN HCL 0.4 MG CAP PO SCH (09:09)
[2017-09-24] MEDS: FERROUS SULFATE 325 MG TAB PO SCH (09:09)
[2017-09-24] MEDS: POTASSIUM CHLORIDE 20 MEQ TAB CR PO SCH (09:10)
[2017-09-24] MEDS: FUROSEMIDE 20 MG TAB PO SCH ×2 (09:10→17:08)
[2017-09-24] MEDS: CLONAZEPAM 0.5 MG TAB PO SCH (09:10)
[2017-09-24] MEDS: MEMANTINE 10 MG TAB PO SCH ×2 (09:11→17:08)
[2017-09-24] MEDS: SENNOSIDES 8.6 MG TAB PO SCH (09:11)
[2017-09-24] MEDS: METOPROLOL TARTRATE 25 MG TAB PO SCH (09:11)
[2017-09-24] MEDS: MULTIVITAMINS/MINERALS TAB PO SCH (09:11)
[2017-09-24] MEDS: GABAPENTIN 100 MG CAP PO SCH ×3 (09:11→20:45)
[2017-09-24] MEDS: RIVAROXABAN 20 MG TABLET PO SCH (09:11)
[2017-09-24 12:00] VITALS: BP 138/69
--- NOTE | 2017-09-24 14:42 | Progress Note ---
DATE: September 24, 2017 CARDIOLOGY PROGRESS NOTE SUBJECTIVE: Denies chest pain or shortness of breath. Paced rhythm on tele. OBJECTIVE VITAL SIGNS: Temperature 96.6, heart rate 80, respiratory rate 18, blood pressure 144/67, and O2 sat 99% room air. GENERAL: No acute distress. Alert. NECK: No JVD. CHEST: Clear to auscultation. CARDIOVASCULAR: Regular rate and rhythm. Normal S1 and S2. Systolic ejection murmur 1/6. ABDOMEN: Soft. EXTREMITIES: No edema. Bilateral TMAs. CARDIOVASCULAR MEDICATIONS: Xarelto 20 mg daily, metoprolol 75 mg daily, furosemide 10 mg b.i.d., and aspirin 81 mg daily. LABORATORY DATA: Glucose 81. ASSESSMENT 1. Status post bilateral transmetatarsal amputations. 2. Peripheral arterial disease, requiring multiple interventions. 3. Persistent atrial fibrillation. 4. Atypical chest pain. 5. Sepsis secondary to Escherichia coli bacteremia. 6. Proteus mirabilis urinary tract infection. RECOMMENDATIONS 1. Continue current cardiovascular medications. 2. No additional coronary intervention advised at this point; please refer to previous abnormal stress test with non-transmural scar in inferolateral wall with no additional areas of ischemia. Continue aggressive medical therapy for CAD, antibiotics. We will follow closely. Job#: [id number] NADIA
[2017-09-24 16:00] VITALS: BP 122/60
[2017-09-24] MEDS: FINASTERIDE 5 MG TAB PO SCH (20:45)
[2017-09-24] MEDS: LATANOPROST(OPTH) 2.5 ML BTL OP SCH (20:45)
[2017-09-24 21:09] VITALS: BP 145/79
[2017-09-25] VITALS (7 sets, daily range): BP systolic 128–149; BP diastolic 58–65
[2017-09-25] MEDS: MEROPENEM 1 GM VIAL IV SCH ×4 (00:28→18:52)
--- NOTE | 2017-09-25 01:47 | Progress Note ---
DATE: September 24, 2017 Mr. Almeida is doing better. There are no new complaints. REVIEW OF SYSTEMS: Negative. PHYSICAL EXAMINATION: GENERAL: He is alert and oriented, does not seem to be in acute distress. VITAL SIGNS: Stable, afebrile. HEENT: He is normocephalic, does not appear icteric. NECK: Supple. No JVD, no lymphadenopathy, no thyromegaly. CHEST: Clear bilaterally. HEART: S1 and S2. No S3, S4, or murmur. ABDOMEN: Soft. Bowel sounds present. No tenderness. EXTREMITIES: No edema. SKIN: No rash. IMPRESSION: 1. Sepsis with Escherichia coli bacteremia. To finish 14 days of antibiotic. 2. Proteus mirabilis urinary tract infection. 3. Atypical chest pain. 4. Status post bilateral transmetatarsal amputation. 5. Peripheral vascular disease. Continue the same from infectious disease point of view. His laboratory data reviewed. Chart reviewed. To finish 14 days of meropenem. Job#: [id number]
[2017-09-25] MEDS: INSULIN REGULAR, HUMAN 100 UNIT/1 ML 3ML VIAL SQ SCH ×4 (07:30→21:00)
[2017-09-25] MEDS: PANTOPRAZOLE SOD 40 MG TABEC PO SCH (08:02)
[2017-09-25] MEDS: TAMSULOSIN HCL 0.4 MG CAP PO SCH (08:57)
[2017-09-25] MEDS: FERROUS SULFATE 325 MG TAB PO SCH (08:57)
[2017-09-25] MEDS: ASPIRIN 81 MG CHEW TAB PO SCH (08:57)
[2017-09-25] MEDS: SENNOSIDES 8.6 MG TAB PO SCH (08:58)
[2017-09-25] MEDS: MEMANTINE 10 MG TAB PO SCH ×2 (08:58→16:43)
[2017-09-25] MEDS: MULTIVITAMINS/MINERALS TAB PO SCH (08:58)
[2017-09-25] MEDS: FUROSEMIDE 20 MG TAB PO SCH ×2 (08:58→16:43)
[2017-09-25] MEDS: METOPROLOL SUCCINATE 25 MG TAB XL PO SCH (08:58)
[2017-09-25] MEDS: GABAPENTIN 100 MG CAP PO SCH ×3 (08:58→21:05)
[2017-09-25] MEDS: POTASSIUM CHLORIDE 20 MEQ TAB CR PO SCH (09:00)
--- NOTE | 2017-09-25 12:42 | Progress Note ---
DATE: September 25, 2017 CARDIOLOGY PROGRESS NOTE SUBJECTIVE: Patient denies chest pain or shortness of breath. OBJECTIVE VITAL SIGNS: Temperature 97.5 degrees, pulse 79, respiratory rate 18, blood pressure 142/65, oxygen saturation 97% on room air. GENERAL: Awake, alert, in no acute distress. LUNGS: Clear to auscultation bilaterally. No wheezes or crackles. CARDIOVASCULAR: Normal rate, regular rhythm. Systolic murmur 1/6. Normal S1 and S2. ABDOMEN: Soft. EXTREMITIES: No edema. Status post bilateral TMA. CARDIAC MEDICATIONS 1. Metoprolol succinate 75 mg p.o. daily. 2. Furosemide 20 mg p.o. b.i.d. 3. Aspirin 81 mg p.o. daily. 4. Rivaroxaban 20 mg p.o. daily. LABS: None today. TELEMETRY: V-paced. IMPRESSION 1. Escherichia coli bacteremia. 2. Proteus mirabilis urinary tract infection. 3. Sepsis secondary to above. 4. Atypical chest pain. 5. Peripheral arterial disease status post multiple interventions. 6. Permanent atrial fibrillation. 7. Recent transmetatarsal amputation bilaterally. RECOMMENDATIONS: Continue current cardiac medications. 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 No further cardiac evaluation is indicated at this time. IV antibiotics per Infectious Disease. Thank you for this consult. We will continue to follow. Job#: [id number] MTDD
[2017-09-25] MEDS: LATANOPROST(OPTH) 2.5 ML BTL OP SCH (21:05)
[2017-09-25] MEDS: FINASTERIDE 5 MG TAB PO SCH (21:05)
[2017-09-26] VITALS: BP 135/64
[2017-09-26] MEDS: MEROPENEM 1 GM VIAL IV SCH ×4 (01:20→19:45)
[2017-09-26 04:00] VITALS: BP 128/60
[2017-09-26] MEDS: INSULIN REGULAR, HUMAN 100 UNIT/1 ML 3ML VIAL SQ SCH ×4 (07:30→20:45)
[2017-09-26 07:51] VITALS: BP 131/61
[2017-09-26] MEDS: MEMANTINE 10 MG TAB PO SCH ×2 (08:55→17:00)
[2017-09-26] MEDS: PANTOPRAZOLE SOD 40 MG TABEC PO SCH (08:55)
[2017-09-26] MEDS: MULTIVITAMINS/MINERALS TAB PO SCH (08:55)
[2017-09-26] MEDS: TAMSULOSIN HCL 0.4 MG CAP PO SCH (08:55)
[2017-09-26] MEDS: FUROSEMIDE 20 MG TAB PO SCH ×2 (08:55→17:00)
[2017-09-26] MEDS: ASPIRIN 81 MG CHEW TAB PO SCH (08:55)
[2017-09-26] MEDS: GABAPENTIN 100 MG CAP PO SCH ×3 (08:55→21:00)
[2017-09-26] MEDS: FERROUS SULFATE 325 MG TAB PO SCH (08:55)
[2017-09-26] MEDS: POTASSIUM CHLORIDE 20 MEQ TAB CR PO SCH (08:56)
[2017-09-26] MEDS: METOPROLOL SUCCINATE 25 MG TAB XL PO SCH (08:56)
[2017-09-26] MEDS: SENNOSIDES 8.6 MG TAB PO SCH (08:56)
[2017-09-26 12:04] VITALS: BP 141/68
[2017-09-26 16:30] VITALS: BP 136/69
--- NOTE | 2017-09-26 20:04 | Progress Note ---
DATE: September 26, 2017 CARDIOLOGY PROGRESS NOTE SUBJECTIVE: The patient denies chest pain. OBJECTIVE VITAL SIGNS: Temperature 96.6 degrees, pulse 80, respiratory rate 20, blood pressure 121/68, oxygen saturation 96% on room air. GENERAL: Awake, alert, in no acute distress. LUNGS: Clear to auscultation bilaterally. No wheezes or crackles. CARDIOVASCULAR: Normal rate, regular rhythm. Systolic murmur 1/6. Normal S1, S2. ABDOMEN: Soft. EXTREMITIES: No edema. Status post bilateral TMA. CARDIAC MEDICATIONS 1. Furosemide 20 mg p.o. b.i.d. 2. Metoprolol succinate 75 mg p.o. daily. 3. Aspirin 81 mg p.o. daily. LABS: None today. TELEMETRY: V-paced. IMPRESSION 1. Escherichia coli bacteremia. 2. Proteus mirabilis urinary tract infection. 3. Sepsis secondary to above. 4. Atypical chest pain. 5. Peripheral arterial disease, status post multiple interventions. 6. Permanent atrial fibrillation. 7. Recent transmetatarsal amputation bilaterally. RECOMMENDATIONS: Continue current cardiac medications. 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 No further cardiac evaluation is indicated at this time. IV antibiotics per infectious disease. Thank you for this consult. We will continue to follow. Job#: [id number] GUERO
[2017-09-26] MEDS: FINASTERIDE 5 MG TAB PO SCH (21:00)
[2017-09-26] MEDS: LATANOPROST(OPTH) 2.5 ML BTL OP SCH (21:00)
[2017-09-26 21:26] VITALS: BP 117/62
[2017-09-27 01:22] VITALS: BP 109/58
[2017-09-27] MEDS: MEROPENEM 1 GM VIAL IV SCH ×3 (01:34→14:20)
[2017-09-27 05:45] VITALS: BP 118/64
[2017-09-27 06:16] LABS: BASOPHILS # (AUTO) 0.1 (0.0-0.1); EOSINOPHILS # (AUTO) 0.3 (0.0-0.4); EOSINOPHILS % 5.4 % (0.0-6.0); HEMATOCRIT 44.5 % (38.2-49.6); HEMOGLOBIN 14.8 g/dL (14.0-18.0); LYMPHOCYTES # (AUTO) 0.9 (1.0-3.2); LYMPHOCYTES % 15.5 % (18.0-39.1); MEAN CORPUSCULAR HEMOGLOBIN 30.4 pg (28-32); MEAN CORPUSCULAR HGB CONC 33.3 g/dL (31-35); MEAN CORPUSCULAR VOLUME 91.4 fL (81-99); MONOCYTES # (AUTO) 0.6 (0.2-0.8); MONOCYTES % 9.4 % (4.4-11.3); NEUTROPHILS % 67.9 % (38.7-80.0); PLATELET COUNT 314 x10e3/uL (140-360); RED BLOOD COUNT 4.87 x10e6/uL (4.3-5.7); RED CELL DISTRIBUTION WIDTH 16.8 % (11.7-14.4)
[2017-09-27 06:46] LABS: ALANINE AMINOTRANSFERASE 26 IU/L (0-55); ALBUMIN 2.3 g/dL (3.5-5.0); ALBUMIN/GLOBULIN RATIO 0.6 (0.8-2.0); ALKALINE PHOSPHATASE 216 IU/L (40-150); ANION GAP 9.7 mmol/L (8-16); BLOOD UREA NITROGEN 20 mg/dL (7-26); BUN/CREATININE RATIO 25 (6-25); CALCIUM 8.6 mg/dL (8.4-10.2); CARBON DIOXIDE 31 mmol/L (22-29); CHLORIDE 101 mmol/L (98-107); EST GLOMERULAR FILTRATION RATE > 60 ML/MIN (60-); GLUCOSE 92 mg/dL (74-118); MAGNESIUM 1.9 MG/DL (1.3-2.1); POTASSIUM 3.7 mmol/L (3.5-5.1); SODIUM 138 mmol/L (136-145)
[2017-09-27] MEDS: INSULIN REGULAR, HUMAN 100 UNIT/1 ML 3ML VIAL SQ SCH ×2 (07:30→11:30)
[2017-09-27 08:00] VITALS: BP 122/56
[2017-09-27 08:30] VITALS: BP 122/56
[2017-09-27] MEDS: FUROSEMIDE 20 MG TAB PO SCH (09:10)
[2017-09-27] MEDS: TAMSULOSIN HCL 0.4 MG CAP PO SCH (09:10)
[2017-09-27] MEDS: PANTOPRAZOLE SOD 40 MG TABEC PO SCH (09:10)
[2017-09-27] MEDS: FERROUS SULFATE 325 MG TAB PO SCH (09:10)
[2017-09-27] MEDS: GABAPENTIN 100 MG CAP PO SCH ×2 (09:10→14:45)
[2017-09-27] MEDS: MULTIVITAMINS/MINERALS TAB PO SCH (09:10)
[2017-09-27] MEDS: ASPIRIN 81 MG CHEW TAB PO SCH (09:10)
[2017-09-27] MEDS: SENNOSIDES 8.6 MG TAB PO SCH (09:10)
[2017-09-27] MEDS: MEMANTINE 10 MG TAB PO SCH (09:10)
[2017-09-27] MEDS: METOPROLOL SUCCINATE 25 MG TAB XL PO SCH (09:12)
[2017-09-27] MEDS: POTASSIUM CHLORIDE 20 MEQ TAB CR PO SCH (09:12)
[2017-09-27 12:00] VITALS: BP 112/54
[2017-09-27 14:00] VITALS: BP 124/57
--- NOTE | 2017-09-27 16:02 | Diagnostic Imaging Report ---
PROCEDURE:X-RAY MODIFIED BARIUM SWALLOW COMPARISON:None. INDICATIONS:Dysphagia DISCUSSION:Fluoroscopic examination was performed in conjunction with speech pathology, during swallowing of a variety of thin and thick liquid consistencies. As examination shows no premature spillage into piriform sinus. No laryngeal penetration or aspiration was noted. Trace vallecular residue was seen. No piriform sinus, pharyngeal wall or base of tongue residue is noted. CONCLUSION:Functional swallow. No penetration or aspiration. Please see the report from speech pathology for complete details. Micha Bell M.D. Dictated by: Micha Bell M.D. on 09/27/2017 at 16:03 Electronically approved by: Micha Bell M.D. on 09/27/2017 at 16:03
[2017-09-27] MEDS ORDERED: RIVAROXABAN 20 MG TABLET PO SCH (17:00)
--- NOTE | 2017-09-27 18:20 | Progress Note ---
DATE: September 27, 2017 CARDIOLOGY PROGRESS NOTE SUBJECTIVE: The patient denies chest pain or shortness of breath. He is being discharged today. OBJECTIVE VITAL SIGNS: Temperature 96.7 degrees, pulse 88, respiratory rate 20, blood pressure 112/54, oxygen saturation 96% on room air. GENERAL: Awake, alert, in no acute distress. LUNGS: Clear to auscultation bilaterally. No wheezes or crackles. CARDIOVASCULAR: Normal rate, regular rhythm. Systolic murmur 1/6. Normal S1, S2. ABDOMEN: Soft. EXTREMITIES: No edema. Status post bilateral TMA. CARDIAC MEDICATIONS 1. Furosemide 20 mg p.o. b.i.d. 2. Metoprolol succinate 75 mg p.o. daily. 3. Aspirin 81 mg p.o. daily. 4. Rivaroxaban 20 mg p.o. daily. LABS: WBC 5.94, hemoglobin 14.8, hematocrit 44.5, platelets 314,000, sodium 138, potassium 3.7, chloride 101, CO2 of 31, BUN 20, creatinine 0.8. WBC 5.94. Hemoglobin 14.8, hematocrit 44.5, platelets 314,000. Modified barium swallow. Functional swallow, no aspiration or penetration. TELEMETRY: V-paced. IMPRESSION 1. Escherichia coli bacteremia. 2. Proteus mirabilis urinary tract infection. 3. Sepsis secondary to above. 4. Atypical chest pain. 5. Peripheral arterial disease, status post multiple interventions. 6. Permanent atrial fibrillation. 7. Recent transmetatarsal amputation bilaterally. RECOMMENDATIONS: Continue current cardiac medications. 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 No further cardiac evaluation is indicated at this time. IV antibiotics per infectious disease. Thank you for this consult. We will continue to follow. Job#: [id number]
== END 2017-09-27 16:35 | DRG 698 ==
LOC: ER 15:36 → ERHOLD 17:31 → IMCU 18:08 → INTOOBSV 09-18 12:07 → OBSVTOIN 09-18 12:07 → MED/SURG2 09-19 10:39
PROVIDERS: ADMIT Internal Medicine; ATTEND Internal Medicine
DX: T83.511A Infection and inflammatory reaction due to indwelling urethral catheter, initial encounter (principal); A41.51 Sepsis due to Escherichia coli [E. coli]; I50.20 Unspecified systolic (congestive) heart failure; F03.90 Unspecified dementia, unspecified severity, without behavioral disturbance, psychotic disturbance, mood disturbance, and anxiety; I11.0 Hypertensive heart disease with heart failure; I48.2 Chronic atrial fibrillation; R13.10 Dysphagia, unspecified; J44.9 Chronic obstructive pulmonary disease, unspecified; B96.4 Proteus (mirabilis) (morganii) as the cause of diseases classified elsewhere; E11.9 Type 2 diabetes mellitus without complications; R42 Dizziness and giddiness; Z95.810 Presence of automatic (implantable) cardiac defibrillator; I25.10 Atherosclerotic heart disease of native coronary artery without angina pectoris; K21.9 Gastro-esophageal reflux disease without esophagitis; N40.0 Benign prostatic hyperplasia without lower urinary tract symptoms; Z16.35 Resistance to multiple antimicrobial drugs; I73.9 Peripheral vascular disease, unspecified; Z79.01 Long term (current) use of anticoagulants; Z89.432 Acquired absence of left foot; Z89.431 Acquired absence of right foot; R07.89 Other chest pain; I25.2 Old myocardial infarction
CPT/HCPCS: 36415; 51700; 71045; 74230; 76700; 78452; 80048; 80053; 80076; 81001; 82150; 82550; 82553; 82948; 83605; 83690; 83735; 84484; 85025; 85610; 87040; 87071; 87086; 87186; 87205; 87400; 93005; 93017; 93306; 96376; 99284; A9502; G0378; J0696; J2185; J7030

== ENCOUNTER 2017-12-31 11:17 | Emergency (ER) | payer MEDICARE, OTHER ==
[~2017-12-31] VITALS: Ht 175.3 cm; Wt 83.9 kg
[~2017-12-31 11:17] MED LIST changes: -LIPITOR10 MG PO; -REMERON15 MG PO
[2017-12-31 12:47] LABS: BASOPHILS % 0.4 % (0.0-1.0); EOSINOPHILS # (AUTO) 0.2 (0.0-0.4); EOSINOPHILS % 1.4 % (0.0-6.0); HEMATOCRIT 47.4 % (38.2-49.6); HEMOGLOBIN 15.9 g/dL (14.0-18.0); LYMPHOCYTES # (AUTO) 0.8 (1.0-3.2); LYMPHOCYTES % 7.5 % (18.0-39.1); MEAN CORPUSCULAR HEMOGLOBIN 30.7 pg (28-32); MEAN CORPUSCULAR HGB CONC 33.5 g/dL (31-35); MEAN CORPUSCULAR VOLUME 91.5 fL (81-99); MONOCYTES # (AUTO) 0.7 (0.2-0.8); MONOCYTES % 5.8 % (4.4-11.3); NEUTROPHILS # (AUTO) 9.4 (2.1-6.9); NEUTROPHILS % 84.4 % (38.7-80.0); PLATELET COUNT 224 x10e3/uL (140-360); RED BLOOD COUNT 5.18 x10e6/uL (4.3-5.7)
[2017-12-31 12:57] LABS: ANION GAP 13.6 mmol/L (8-16); BLOOD UREA NITROGEN 19 mg/dL (7-26); BUN/CREATININE RATIO 21 (6-25); CARBON DIOXIDE 30 mmol/L (22-29); CHLORIDE 102 mmol/L (98-107); CREATININE, SERUM 0.92 mg/dL (0.72-1.25); EST GLOMERULAR FILTRATION RATE > 60 ML/MIN (60-); GLUCOSE 98 mg/dL (74-118); POTASSIUM 3.6 mmol/L (3.5-5.1); SODIUM 142 mmol/L (136-145)
[2017-12-31 13:01] LABS: CLARITY,URINE HAZY (CLEAR); COLOR,URINE YELLOW (YELLOW); LEUKOCYTE ESTERASE ,URINE 1+ (NEGATIVE); NITRITE,URINE POSITIVE (NEGATIVE)
[2017-12-31 13:02] LABS: BACTERIA,URINE MODERATE /HPF; BILIRUBIN,URINE NEGATIVE (NEGATIVE); EPITHELIAL CELLS,URINE FEW /LPF; KETONES,URINE NEGATIVE (NEGATIVE); MUCUS,URINE FEW (RARE); PROTEIN,URINE DIPSTICK NEGATIVE (NEGATIVE); RBC,URINE 0-5 /HPF (0-5); URINE UROBILINOGEN 4 mg/dL (0.2 - 1)
[2017-12-31 13:16] LABS: CLARITY,URINE HAZY (CLEAR); COLOR,URINE YELLOW (YELLOW)
[2017-12-31 13:17] LABS: KETONES,URINE NEGATIVE (NEGATIVE); LEUKOCYTE ESTERASE ,URINE 1+ (NEGATIVE); NITRITE,URINE NEGATIVE (NEGATIVE); PROTEIN,URINE DIPSTICK NEGATIVE (NEGATIVE); URINE UROBILINOGEN 1 mg/dL (0.2 - 1)
[2017-12-31 13:18] LABS: BILIRUBIN,URINE NEGATIVE (NEGATIVE)
[2017-12-31 13:24] LABS: BACTERIA,URINE FEW /HPF; RBC,URINE >50 /HPF (0-5)
[2017-12-31] MEDS ORDERED: SODIUM CHLORIDE 0.9% 1000ML 1,000 ML IV SCH (14:00)
[2017-12-31] MEDS ORDERED: CEFTRIAXONE SOD 1 GM VIAL IV ONE (14:30)
[2017-12-31 14:39] VITALS: BP 144/69
== END 2017-12-31 15:08 | disposition home or self-care (01) ==
LOC: ER 11:17
DX: R30.0 Dysuria (principal); N30.21 Other chronic cystitis with hematuria
CPT/HCPCS: 36415; 51702; 80048; 81001; 85025; 87086; 87186; 99284; J0696; J7030; 51700

== ENCOUNTER 2018-02-10 02:00 | Inpatient (IN) | payer MEDICARE, OTHER ==
[~2018-02-10] VITALS: Ht 175.3 cm; Wt 86.2 kg
[2018-02-10 02:49] LABS: BASOPHILS % 0.7 % (0.0-1.0); EOSINOPHILS # (AUTO) 0.4 (0.0-0.4); EOSINOPHILS % 6.5 % (0.0-6.0); HEMATOCRIT 46.7 % (38.2-49.6); HEMOGLOBIN 15.5 g/dL (14.0-18.0); LYMPHOCYTES # (AUTO) 1.2 (1.0-3.2); LYMPHOCYTES % 20.6 % (18.0-39.1); MEAN CORPUSCULAR HGB CONC 33.2 g/dL (31-35); MEAN CORPUSCULAR VOLUME 93.4 fL (81-99); MONOCYTES # (AUTO) 0.6 (0.2-0.8); MONOCYTES % 9.9 % (4.4-11.3); NEUTROPHILS # (AUTO) 3.6 (2.1-6.9); PLATELET COUNT 203 x10e3/uL (140-360); RED CELL DISTRIBUTION WIDTH 16.2 % (11.7-14.4)
[2018-02-10 02:58] LABS: INR 1.18; PROTHROMBIN TIME 14.1 seconds (11.9-14.5)
[2018-02-10 02:59] LABS: PARTIAL THROMBOPLASTIN TIME 29.5 seconds (23.8-35.5)
[2018-02-10 03:08] LABS: ALANINE AMINOTRANSFERASE 22 IU/L (0-55); ALBUMIN 2.8 g/dL (3.5-5.0); ALBUMIN/GLOBULIN RATIO 0.7 (0.8-2.0); ALKALINE PHOSPHATASE 234 IU/L (40-150); BLOOD UREA NITROGEN 19 mg/dL (7-26); BUN/CREATININE RATIO 21 (6-25); CALCIUM 8.8 mg/dL (8.4-10.2); CARBON DIOXIDE 27 mmol/L (22-29); CHLORIDE 99 mmol/L (98-107); EST GLOMERULAR FILTRATION RATE > 60 ML/MIN (60-); GLUCOSE 102 mg/dL (74-118); SODIUM 138 mmol/L (136-145)
[2018-02-10] MEDS ORDERED: POTASSIUM CHLORIDE 20MEQ/15ML UDC PO ONE (04:00)
[2018-02-10] MEDS ORDERED: HEPARIN SOD (PORCINE) 5,000 UNIT/ML VIAL IV ONE (05:45)
[2018-02-10] MEDS ORDERED: SODIUM CHLORIDE FLUSH 10 ML SYR INJ PRN (06:00)
[2018-02-10] MEDS ORDERED: DEXTROSE 50% SYRINGE 50 ML IV PRN (06:00)
[2018-02-10] MEDS ORDERED: MORPHINE SULFATE 2 MG/ML SYR IV PRN (06:00)
[2018-02-10] MEDS ORDERED: ONDANSETRON HCL INJ 2 MG/ML VIAL IV PRN ×2 (06:00→09:45)
[2018-02-10] MEDS ORDERED: HYDRALAZINE HCL 20 MG/ML VIAL IV PRN (06:00)
[2018-02-10] MEDS ORDERED: SODIUM CHLORIDE 0.9% 1000ML 1,000 ML IV ONE (06:00)
[2018-02-10] MEDS: HEPARIN 25,000U/0.45% NS 250ML 1,400 UNIT in SODIUM CHLORIDE 0.9% 250ML 0 ML IV SCH (06:06)
[2018-02-10] MEDS: INSULIN REGULAR, HUMAN 100 UNIT/1 ML 3ML VIAL SQ SCH ×4 (07:30→21:00)
[2018-02-10 07:45] VITALS: BP 153/78
[2018-02-10] MEDS ORDERED: HYDROCODONE/APAP 10MG-325MG TAB PO PRN (09:30)
[2018-02-10] MEDS ORDERED: ACETAMINOPHEN 325 MG TAB PO PRN (09:45)
--- NOTE | 2018-02-10 10:17 | History and Physical ---
CHIEF COMPLAINT: Right foot pain with cold sensation. 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 Patient is a very poor historian and so information is being obtained from the ED note as well as the staff. There are no family members currently at bedside. According to the records, patient has had several lower extremity angiograms requiring intervention. He was last seen by Dr. Clifford, cardiology. Patient was seen and evaluated at bedside in the ER, currently doing well with no other issues. Currently on heparin drip. His right foot has some cold sensation on examination. Does have some pain. REVIEW OF SYSTEMS: Right foot pain with cold sensation. Unable to obtain the rest of 14- point review of systems as the patient currently has some dementia. ALLERGIES: NO KNOWN DRUG ALLERGIES. HOME MEDICATIONS: Aspirin 81 mg daily, Klonopin 0.5 mg p.o. t.i.d., finasteride 5 mg daily, furosemide 20 mg b.i.d., gabapentin 100 mg p.o. t.i.d., [place] 10 every 6 hours as needed for pain, Namenda 5 mg p.o. b.i.d., metoprolol tartrate 25 mg daily, multivitamin, Protonix 40 mg daily, tamsulosin 0.4 mg 1 tab daily. He also take Xarelto 1 tab daily. PAST MEDICAL HISTORY: Has a history of AFib on anticoagulation, peripheral vascular disease, bilateral TMAs. He also had multiple lower extremity angiograms. He has dementia. He has BPH. He has peripheral neuropathy. SURGICAL HISTORY: Bilateral TMA. He has had multiple angiograms in the past. FAMILY HISTORY: Hypertension and diabetes. SOCIAL HISTORY: No drugs, no alcohol and does not smoke. Currently lives with family. No family at bedside at this time. VITAL SIGNS: Surgeon 98 pulse 80 respiratory rate is 18 blood pressure 125 760. Pulse ox 98% on room air. LABORATORY DATA: Lab findings show white count 5.8, hemoglobin 15, hematocrit 47, platelets 203,000. Coagulation: PT 14, INR 1.1, PTT 29.5. Chemistry: Sodium 138, potassium is 3, chloride 99, bicarb 27, anion gap of 15. BUN is 19, creatinine is 0.9. Glucose is 102. Calcium is 8.8. LFTs were normal. Total protein 6.9, albumin 2.8. MICROBIOLOGY: Blood cultures are pending. IMAGING STUDIES: Venous lower extremity Doppler are all pending. PHYSICAL EXAM: VITAL SIGNS: Temperature 98, pulse 80, respiratory rate 18, blood pressure 145/76, pulse oximetry 98% on room air. GENERAL: Not in acute distress. He is a very poor historian. He has some underlying dementia. HEENT: Head is normocephalic, atraumatic. Eyes: Pupils equal, round and reactive to light bilaterally. Extraocular movements intact bilaterally. Throat with no evidence of erythema or exudates in the posterior pharynx. He has poor dentition. NECK: Supple with good range of motion. PULMONARY: Clear to auscultation bilaterally. No wheezing, no rales, no rhonchi, no crackles appreciated. CARDIOVASCULAR: Positive S1 and S2, no murmurs, rubs or gallops appreciated. ABDOMEN: Soft, nondistended, nontender on palpation. Bowel sounds were present. MUSCULOSKELETAL: Strength 5/5 throughout, no evidence of musculoskeletal deficit on exam. No weakness appreciated. NEUROLOGIC: Cranial nerves II-XII grossly intact. No evidence of neurological deficit on examination. SKIN: Intact. Warm to touch. Good capillary refill. EXTREMITIES: He has a right lower extremity, foot, erythema, cold sensation. Pulses are minimally palpable and kind of bluish and cyanotic in discoloration. PSYCHIATRIC: He has baseline dementia. IMPRESSION 1. Right lower extremity acute ischemic limb. 2. Dementia. 3. Hypertension. 4. Peripheral neuropathy. 5. Chronic pain. PLAN: At this time, cardiology has been consulted, Dr. Clifford. Will likely need any angiogram of the right lower extremity. Will continue with a heparin drip for now. We are going to resume all of his antihypertensive medications as well as his anxiolytics that he has been taking for significant period of time. Put him on low dose IV fluids. Will continue n.p.o. for now. It is less likely there will be any kind of procedure during this time and likely will occur maybe on Monday. We are going to have cardiology notified and ask, but likely will occur on Monday. We are going to resume all home medications. He has heparin for DVT prophylaxis and for GI prophylaxis he has Protonix. Patient will be admitted for further evaluation by cardiology. Job#: [id number] MAN
[2018-02-10] MEDS: SODIUM CHLORIDE 0.9% 1000ML 1,000 ML IV SCH ×2 (13:02→23:20)
[2018-02-10 13:30] VITALS: BP 159/72
--- NOTE | 2018-02-10 13:32 | Consultation ---
DATE OF CONSULTATION: February 10, 2018 INDICATIONS: Critical limb ischemia. HISTORY OF PRESENT ILLNESS: Mr. Almeida is 82 years old. He has atrial fibrillation. He has a biventricular pacemaker and AV node ablation. He has severe peripheral arterial disease. Recent intervention was done within the last 6 months; however, he now presents with new onset of coolness in his right foot consistent with critical limb ischemia. Arterial Duplexes consistent with severe re-stenosis in his right and left femoral arteries. There is no evidence of DVT. REVIEW OF SYSTEMS: Is negative except as dictated in the History of Present Illness. PAST MEDICAL HISTORY: Diabetes mellitus and other conditions as listed above. SOCIAL HISTORY: Patient [place] a jail. Does not smoke or drink. MEDICATIONS: Reviewed. REVIEW OF SYSTEMS: As dictated in the history of present illness physical examination. PHYSICAL EXAMINATION: VITALS: Afebrile, heart rate is 80. Blood pressure 145/76. CARDIOVASCULAR: Regular rhythm. Systolic murmur. No pulses in the feet. LUNGS: Clear to auscultation bilaterally. Arterial Duplex was reviewed. Hemoglobin is 15.5, serum creatinine is normal. ASSESSMENT: Critical limb ischemia of the right lower extremity with severe peripheral arterial disease. RECOMMENDATIONS: I agree with intravenous heparin for now. We will plan for angiography and intervention as indicated. I thank Dr. Villarreal for this consultation. Job#: [id number]
[2018-02-10 14:30] VITALS: BP 160/77
[2018-02-10 14:31] VITALS: BP 160/77
[2018-02-10] MEDS ORDERED: CLONAZEPAM 0.5 MG TAB PO SCH (15:00)
[2018-02-10] MEDS: GABAPENTIN 100 MG CAP PO SCH ×2 (15:00→21:58)
[2018-02-10] MEDS ORDERED: LIPITOR10 MG PO (15:28)
[2018-02-10] MEDS ORDERED: REMERON15 MG PO (15:28)
[2018-02-10 16:00] VITALS: BP 161/75
[2018-02-10] MEDS: MEMANTINE 10 MG TAB PO SCH (17:00)
[2018-02-10] MEDS: FUROSEMIDE 20 MG TAB PO SCH (17:00)
[2018-02-10] MEDS: CLONAZEPAM 0.5 MG TAB PO PRN (17:38)
[2018-02-10 20:00] VITALS: BP 141/65
[2018-02-10] MEDS: LATANOPROST(OPTH) 2.5 ML BTL OP SCH (21:00)
[2018-02-11] VITALS (7 sets, daily range): BP systolic 116–158; BP diastolic 62–77
[2018-02-11] MEDS: HYDROCODONE/APAP 5MG-325MG TAB PO PRN ×2 (02:32→10:45)
[2018-02-11] MEDS: CLONAZEPAM 0.5 MG TAB PO PRN ×2 (02:32→13:55)
[2018-02-11] MEDS: HEPARIN 25,000U/0.45% NS 250ML 1,400 UNIT in SODIUM CHLORIDE 0.9% 250ML 0 ML IV SCH (05:45)
[2018-02-11 06:47] LABS: ANION GAP 12.9 mmol/L (8-16); BLOOD UREA NITROGEN 16 mg/dL (7-26); BUN/CREATININE RATIO 21 (6-25); CALCIUM 8.6 mg/dL (8.4-10.2); CARBON DIOXIDE 25 mmol/L (22-29); CHLORIDE 105 mmol/L (98-107); CREATININE, SERUM 0.78 mg/dL (0.72-1.25); EST GLOMERULAR FILTRATION RATE > 60 ML/MIN (60-); GLUCOSE 94 mg/dL (74-118); SODIUM 140 mmol/L (136-145)
[2018-02-11 06:48] LABS: BASOPHILS % 0.8 % (0.0-1.0); EOSINOPHILS # (AUTO) 0.3 (0.0-0.4); EOSINOPHILS % 5.6 % (0.0-6.0); HEMATOCRIT 45.8 % (38.2-49.6); HEMOGLOBIN 15.2 g/dL (14.0-18.0); LYMPHOCYTES # (AUTO) 1.1 (1.0-3.2); MEAN CORPUSCULAR HEMOGLOBIN 30.6 pg (28-32); MEAN CORPUSCULAR HGB CONC 33.2 g/dL (31-35); MEAN CORPUSCULAR VOLUME 92.3 fL (81-99); MONOCYTES # (AUTO) 0.4 (0.2-0.8); MONOCYTES % 8.8 % (4.4-11.3); NEUTROPHILS # (AUTO) 3.2 (2.1-6.9); NEUTROPHILS % 63.4 % (38.7-80.0); PLATELET COUNT 206 x10e3/uL (140-360); RED BLOOD COUNT 4.96 x10e6/uL (4.3-5.7); RED CELL DISTRIBUTION WIDTH 15.9 % (11.7-14.4)
[2018-02-11] MEDS ORDERED: HEPARIN 25,000U/0.45% NS 250ML 250 ML ONE (06:48)
[2018-02-11 06:50] LABS: POTASSIUM 2.9 mmol/L (3.5-5.1)
[2018-02-11] MEDS ORDERED: POTASSIUM CHLORIDE 20 MEQ TAB CR PO STA (07:06)
[2018-02-11] MEDS: INSULIN REGULAR, HUMAN 100 UNIT/1 ML 3ML VIAL SQ SCH ×4 (07:30→21:00)
[2018-02-11] MEDS: ASPIRIN 81 MG CHEW TAB PO SCH (08:45)
[2018-02-11] MEDS: FUROSEMIDE 20 MG TAB PO SCH ×2 (09:00→17:00)
[2018-02-11] MEDS: MULTIVITAMINS/MINERALS TAB PO SCH (09:00)
[2018-02-11] MEDS: TAMSULOSIN HCL 0.4 MG CAP PO SCH (09:00)
[2018-02-11] MEDS: FINASTERIDE 5 MG TAB PO SCH (09:00)
[2018-02-11] MEDS: MEMANTINE 10 MG TAB PO SCH ×2 (09:00→17:00)
[2018-02-11] MEDS: SENNOSIDES 8.6 MG TAB PO SCH (09:00)
[2018-02-11] MEDS: METOPROLOL TARTRATE 25 MG TAB PO SCH (09:00)
[2018-02-11] MEDS: PANTOPRAZOLE SOD 40 MG TABEC PO SCH (09:00)
[2018-02-11] MEDS: GABAPENTIN 100 MG CAP PO SCH ×3 (09:00→21:34)
[2018-02-11] MEDS ORDERED: QUETIAPINE FUMARATE 25 MG TAB ONE (10:08)
[2018-02-11] MEDS: QUETIAPINE FUMARATE 25 MG TAB PO PRN (10:13)
--- NOTE | 2018-02-11 10:33 | Progress Note ---
DATE: February 11, 2018 SUBJECTIVE: The patient is currently very agitated. He has some underlying dementia. Per cardiology note, no further intervention is needed, just recommends currently with heparin drip. The patient is otherwise tolerating diet well with no other complaints. Seroquel has been ordered as needed for his agitation and combativeness. OBJECTIVE VITAL SIGNS: Temperature 97.5, pulse 79, respiratory rate 18, blood pressure 149/69, pulse oximetry 96%. He is on room air. GENERAL: Not in acute distress, currently very agitated and combative. HEENT: Head is normocephalic, atraumatic. Eyes: Pupils equal, round and reactive to light bilaterally. Extraocular movements intact bilaterally. Throat with no evidence of erythema or exudates in the posterior pharynx. He has poor dentition. NECK: Supple with good range of motion. PULMONARY: Clear to auscultation bilaterally. No wheezing, no rales, no rhonchi and no crackles appreciated. CARDIOVASCULAR: Positive S1 and S2, no murmurs, rubs or gallops appreciated. ABDOMEN: Soft, nondistended, nontender on palpation. Bowel sounds were present. MUSCULOSKELETAL: Strength 5/5 throughout, no evidence of musculoskeletal deficit on exam. No weakness appreciated. NEUROLOGIC: Cranial nerves II-XII grossly intact. No evidence of neurological deficit on examination. SKIN: Intact. Warm to touch. Good capillary refill. EXTREMITIES: Warm to touch in the right lower extremity. PSYCHIATRIC: Currently demented and combative. LABORATORY DATA: White count of 5, hemoglobin 15, hematocrit 46 and platelets 206,000. Coagulation: PTT 54. Chemistry: Sodium 140, potassium 2.9, chloride 105, bicarb 25, anion gap of 12.9, BUN 16, creatinine 0.78. Calcium 8.6. Microbiology: Blood cultures negative. IMAGING STUDIES: Pending. IMPRESSION 1. Right lower extremity acute ischemic limb. 2. Dementia. 3. Hypertension. 4. Peripheral neuropathy. 5. Chronic pain. PLAN: At this time, cardiology has been notified, and currently he is on heparin drip. Will continue with heparin drip as per cardiology. His note states that further recommendations will follow, but recommends to continue heparin drip for now. I will communicate with him and see what the next plan of care is. If he is some sort of angiogram candidate or surgical candidate, I am currently unsure at this time. In relation to his agitation, I am going to give him some Seroquel 25 mg p.o. b.i.d. p.r.n. for agitation. We are going to resume same home medications. He is on a regular diet. For DVT prophylaxis, he is on heparin drip. Job#: [id number] MAN
[2018-02-11] MEDS: SODIUM CHLORIDE 0.9% 1000ML 1,000 ML IV SCH ×3 (12:40→21:49)
[2018-02-11] MEDS ORDERED: ALPRAZOLAM 0.5 MG TAB PO PRN (14:00)
[2018-02-11] MEDS ORDERED: FAMOTIDINE 20 MG TAB PO PRN (14:00)
[2018-02-11] MEDS ORDERED: DIPHENHYDRAMINE HCL 25 MG CAP PO PRN (14:00)
[2018-02-11] MEDS ORDERED: POTASSIUM CHLORIDE 20 MEQ TAB CR PO ONE (15:00)
--- NOTE | 2018-02-11 15:26 | Progress Note ---
DATE: February 11, 2018 CARDIOLOGY PROGRESS NOTE SUBJECTIVE: Mr. Almeida's foot is warmer today. He remains on intravenous heparin. OBJECTIVE VITAL SIGNS: Afebrile. Heart rate is 81. Blood pressure 117/62. O2 sat is 96%. CARDIOVASCULAR: Regular rhythm. EXTREMITIES: Pedal pulses are absent. ASSESSMENT: Critical limb ischemia. PLAN: Continue intravenous heparin. We will try and obtain consent from his family for angiography on his right leg tomorrow morning. Job#: [id number]
[2018-02-11] MEDS: LATANOPROST(OPTH) 2.5 ML BTL OP SCH (21:00)
[2018-02-12] VITALS (40 sets, daily range): BP systolic 99–177; BP diastolic 59–77
[2018-02-12] MEDS: SODIUM CHLORIDE 0.9% 1000ML 1,000 ML IV SCH ×4 (02:00→23:39)
[2018-02-12 05:51] LABS: BASOPHILS # (AUTO) 0.1 (0.0-0.1); EOSINOPHILS # (AUTO) 0.4 (0.0-0.4); EOSINOPHILS % 8.2 % (0.0-6.0); HEMATOCRIT 45.7 % (38.2-49.6); LYMPHOCYTES % 20.6 % (18.0-39.1); MEAN CORPUSCULAR HEMOGLOBIN 30.7 pg (28-32); MEAN CORPUSCULAR HGB CONC 32.8 g/dL (31-35); MEAN CORPUSCULAR VOLUME 93.5 fL (81-99); MONOCYTES # (AUTO) 0.5 (0.2-0.8); MONOCYTES % 10.8 % (4.4-11.3); NEUTROPHILS # (AUTO) 2.9 (2.1-6.9); PLATELET COUNT 186 x10e3/uL (140-360); RED BLOOD COUNT 4.89 x10e6/uL (4.3-5.7); RED CELL DISTRIBUTION WIDTH 15.8 % (11.7-14.4)
[2018-02-12 06:10] LABS: ALANINE AMINOTRANSFERASE 22 IU/L (0-55); ALBUMIN 2.5 g/dL (3.5-5.0); ALBUMIN/GLOBULIN RATIO 0.7 (0.8-2.0); ALKALINE PHOSPHATASE 180 IU/L (40-150); ANION GAP 11.2 mmol/L (8-16); BLOOD UREA NITROGEN 17 mg/dL (7-26); BUN/CREATININE RATIO 20 (6-25); CALCIUM 8.7 mg/dL (8.4-10.2); CARBON DIOXIDE 29 mmol/L (22-29); CHLORIDE 100 mmol/L (98-107); CHOLESTEROL 157 MD/DL (0-199); CREATININE, SERUM 0.85 mg/dL (0.72-1.25); EST GLOMERULAR FILTRATION RATE > 60 ML/MIN (60-); GLUCOSE 97 mg/dL (74-118); HDL CHOLESTEROL 39 MG/DL (40-60); LDL CHOLESTEROL 100 MG/DL (60-130); POTASSIUM 3.2 mmol/L (3.5-5.1); SODIUM 137 mmol/L (136-145); TRIGLYCERIDES 92 MG/DL (0-149)
[2018-02-12] MEDS: INSULIN REGULAR, HUMAN 100 UNIT/1 ML 3ML VIAL SQ SCH ×4 (07:30→21:00)
[2018-02-12] MEDS: MULTIVITAMINS/MINERALS TAB PO SCH (08:42)
[2018-02-12] MEDS: PANTOPRAZOLE SOD 40 MG TABEC PO SCH (08:42)
[2018-02-12] MEDS: METOPROLOL TARTRATE 25 MG TAB PO SCH (08:42)
[2018-02-12] MEDS: ASPIRIN 81 MG CHEW TAB PO SCH (08:42)
[2018-02-12] MEDS: GABAPENTIN 100 MG CAP PO SCH ×3 (08:42→20:55)
[2018-02-12] MEDS: FUROSEMIDE 20 MG TAB PO SCH ×2 (08:42→17:54)
[2018-02-12] MEDS: TAMSULOSIN HCL 0.4 MG CAP PO SCH (08:42)
[2018-02-12] MEDS: FINASTERIDE 5 MG TAB PO SCH (08:42)
[2018-02-12] MEDS: SENNOSIDES 8.6 MG TAB PO SCH (08:42)
[2018-02-12] MEDS: MEMANTINE 10 MG TAB PO SCH ×2 (08:42→17:53)
[2018-02-12] MEDS ORDERED: POTASSIUM CHLORIDE 20 MEQ TAB CR PO NR (09:30)
[2018-02-12] MEDS: CLONAZEPAM 0.5 MG TAB PO PRN ×2 (10:55→17:53)
--- NOTE | 2018-02-12 11:59 | Progress Note ---
DATE: February 12, 2018 SUBJECTIVE: Patient is scheduled for lower extremity angiogram later today by cardiology. Patient was very combative last night, refusing to have his PTT drawn via labs. At this time, he is very comfortable, awake, alert, and he is very cooperative on examination. Patient had breakfast first thing this morning, but now he is n.p.o. for angiogram later this afternoon. OBJECTIVE/PHYSICAL EXAMINATION: VITAL SIGNS: Temperature is 96.7, pulse 81, respiratory rate is 18, blood pressure 152/77. GENERAL: Not in acute distress, alert and oriented x3, cooperative on examination. HEENT: Head: Normocephalic, atraumatic. Eyes: Pupils equal, round, and reactive to light bilaterally. Extraocular movements intact bilaterally. Throat: No evidence of any erythema or exudates in the posterior pharynx. Has poor dentition. NECK: Supple with good range of motion. PULMONARY: Clear to auscultation bilaterally. No wheezing, no rales, no rhonchi, no crackles appreciated. CARDIOVASCULAR: Positive S1 and S2. No murmurs, rubs, or gallops appreciated. ABDOMEN: Soft, nondistended, nontender to palpation. Bowel sounds are present. MUSCULOSKELETAL: Strength is 5/5 throughout. No evidence of any musculoskeletal deficit on examination. No weakness appreciated. NEUROLOGICAL: Cranial nerves II through XII are grossly intact. No evidence of any neurologic deficits on exam. SKIN: Intact. Warm to touch. Good cap refill. PSYCHIATRIC: Normal affect and mood. EXTREMITIES: No edema. Good range of motion throughout. LABS: Showed white count of 4.9, hemoglobin 15, hematocrit is 46, platelets of 186,000. Chemistry: Sodium 137, potassium 3.2, chloride is 100, bicarb 29, anion gap of 11, BUN is 17, creatinine is 0.85, glucose is 97. Total bilirubin is 1.4, AST 27, ALT 22, alk phos 180, total protein 6.2. MICROBIOLOGY: Blood cultures were negative. IMAGING STUDIES: Arterial Doppler shows severe focal stenosis 75% to 99% in the mid segment of the right femoral artery. There is also severe focal stenosis 75% to 99% in the mid segment of the left femoral artery. Recommend angiogram which he will get later today. IMPRESSION: 1. Right lower extremity acute ischemic limb, scheduled for lower extremity angiogram. 2. Dementia with sundowning. 3. Hypertension. 4. Peripheral neuropathy. 5. Chronic pain. PLAN: At this time, the patient will have an angiogram later this afternoon by cardiology. Will continue with heparin drip for now. Patient is much more calmer with the Seroquel given yesterday. Once we get the results from the angiogram, determine the next plan of care by cardiology, will determine when the patient can be discharged home. If his studies are done today with intervention and no further workup needed, he will be likely discharged home tomorrow. Job#: [id number]
[2018-02-12] MEDS ORDERED: MIDAZOLAM HCL 2 MG/2 ML VIAL ONE (12:51)
[2018-02-12] MEDS ORDERED: IOPAMIDOL 300MG/ML 100 ML INFUS..BTL IV ONE (12:52)
[2018-02-12] MEDS ORDERED: HEPARIN SOD/SOD CHLORIDE 2,000 ML ONE (12:52)
[2018-02-12] MEDS ORDERED: FENTANYL CITRATE/PF 100MCG/2 ML INJ ONE (12:52)
[2018-02-12] MEDS ORDERED: LIDOCAINE HCL 2% LOCAL 20 ML VIAL ONE (12:52)
[2018-02-12] MEDS ORDERED: SODIUM CHLORIDE 0.9% 1000ML 1,000 ML ONE (13:16)
[2018-02-12] MEDS ORDERED: HEPARIN SOD (PORCINE) 1000 UNIT/ML 30ML ONE (13:40)
[2018-02-12] MEDS ORDERED: NITROGLYCERIN/D5W 200 MCG/ML 250 ML ONE (13:41)
[2018-02-12] MEDS ORDERED: ALTEPLASE RECOMBINANT 2 MG/2 ML VIAL ONE (13:48)
[2018-02-12] MEDS ORDERED: HEPARIN 25,000 UNIT/D5W 250ML 250 ML IV SCH (14:00)
--- NOTE | 2018-02-12 16:31 | Operative Report ---
DATE OF PROCEDURE: February 12, 2018 CARDIAC EARRING MAKER PROCEDURE NOTE INDICATION: Peripheral arterial disease with critical limb ischemia of the right lower extremity. PROCEDURES PERFORMED: 1. Abdominal aorta catheter placement with abdominal aortogram. 2. Selective catheter placement from the left femoral artery to the right superficial femoral artery. 3. Additional 3rd-order catheter placement from the left femoral artery to the right popliteal artery. 4. Primary thrombectomy of the right superficial femoral artery. 5. Initiation of transcatheter lysis. COMPLICATIONS: None. RECOMMENDATIONS: Reassess for reperfusion in the next 24 hours. Access was obtained in the left femoral artery. A 6-[place] sheath was placed. There was very extensive tortuosity in the iliac artery systolic, and extensive plaque found with critical stenosis and occlusion. The catheter was then advanced from the left femoral artery to the right superficial femoral artery with complete occlusion in the mid portion. Left femoral-popliteal and the right femoral artery was noted with extensive thrombus, slow flow/trickle flow was noted to the right foot. The catheter was then advanced to the popliteal artery and angiography completed. The catheter was then exchanged to a Ancelmo lysis catheter and 2 mg of t-PA bolus was given with intra-arterial infusion of heparin and t-PA at 5 mg per hour initiated. The sheath was secured in place, and the patient was transferred to the ICU in stable condition. Job#: [id number]
[2018-02-12] MEDS: ALTEPLASE RECOMBINANT 2 MG in SODIUM CHLORIDE 0.9% 50ML 50 ML IV SCH ×3 (17:00→22:47)
[2018-02-12] MEDS: MORPHINE SULFATE INJ 4 MG/ML INJ IV PRN ×2 (17:11→23:40)
[2018-02-12] MEDS: HEPARIN 25,000U/0.45% NS 250ML 1,400 UNIT in SODIUM CHLORIDE 0.9% 250ML 0 ML IV SCH (17:49)
--- NOTE | 2018-02-12 18:50 | Progress Note ---
DATE: February 12, 2018 CARDIOLOGY PROGRESS NOTE SUBJECTIVE: Patient denies chest pain or shortness of breath. He was scheduled for peripheral angiogram today with finding of extensive plaque with critical stenosis and occlusion of the iliac artery as well as complete occlusion of the right SFA in the mid portion. Transcatheter lysis was initiated, and the patient was transferred to the ICU. OBJECTIVE VITAL SIGNS: Temperature 96.7 degrees, pulse 79, respiratory rate 18, blood pressure 133/60, oxygen saturation 99% on room air. GENERAL: Awake, alert, in no acute distress. LUNGS: Clear to auscultation bilaterally. No wheezes or crackles. CARDIOVASCULAR: Normal rate, regular rhythm. No murmur. Normal S1 and S2. ABDOMEN: Soft. Nontender. EXTREMITIES: No edema. Right limb is cool on palpation. TELEMETRY: V-paced. CARDIAC MEDICATIONS 1. Furosemide 20 mg p.o. b.i.d. 2. Heparin drip. 3. Metoprolol tartrate 75 mg p.o. daily. 4. Aspirin 81 mg p.o. daily. LABS: WBC 4.9, hemoglobin 15, hematocrit 45.7, platelets 186. Sodium 137, potassium 3.2, chloride 100, CO2 29, BUN 17, creatinine 0.85. IMPRESSION 1. Acute limb ischemia of the right lower extremity. 2. Hypertension. 3. Dementia. 4. Peripheral arterial disease with prior transmetatarsal amputation bilaterally. 5. Atrial fibrillation on anticoagulation. RECOMMENDATIONS: Continue heparin drip as well as transcatheter lysis. Patient will need to be taken back to the medical lab director tomorrow for repeat peripheral angiogram. In the meantime, continue current cardiac medications. Monitor the patient on telemetry. Thank you for this consult. We will continue to follow. Job#: [id number]
[2018-02-12] MEDS ORDERED: LORAZEPAM INJ 2 MG/ML VIAL IV ONE (20:15)
[2018-02-12] MEDS: LATANOPROST(OPTH) 2.5 ML BTL OP SCH (20:55)
[2018-02-13] VITALS (93 sets, daily range): BP systolic 101–195; BP diastolic 53–107
[2018-02-13] MEDS: QUETIAPINE FUMARATE 25 MG TAB PO PRN ×2 (00:59→17:26)
[2018-02-13] MEDS: CLONAZEPAM 0.5 MG TAB PO PRN ×2 (01:03→15:00)
[2018-02-13] MEDS: MORPHINE SULFATE INJ 4 MG/ML INJ IV PRN ×4 (03:03→20:24)
[2018-02-13] MEDS: HEPARIN 25,000U/0.45% NS 250ML 1,400 UNIT in SODIUM CHLORIDE 0.9% 250ML 0 ML IV SCH (03:08)
[2018-02-13] MEDS: ALTEPLASE RECOMBINANT 2 MG in SODIUM CHLORIDE 0.9% 50ML 50 ML IV SCH ×3 (03:09→10:30)
[2018-02-13 05:30] LABS: BASOPHILS % 0.4 % (0.0-1.0); EOSINOPHILS # (AUTO) 0.1 (0.0-0.4); EOSINOPHILS % 2.1 % (0.0-6.0); HEMATOCRIT 47.4 % (38.2-49.6); HEMOGLOBIN 15.4 g/dL (14.0-18.0); LYMPHOCYTES # (AUTO) 1.1 (1.0-3.2); MEAN CORPUSCULAR HEMOGLOBIN 30.4 pg (28-32); MEAN CORPUSCULAR HGB CONC 32.5 g/dL (31-35); MEAN CORPUSCULAR VOLUME 93.5 fL (81-99); MONOCYTES # (AUTO) 0.6 (0.2-0.8); MONOCYTES % 8.8 % (4.4-11.3); NEUTROPHILS # (AUTO) 4.8 (2.1-6.9); NEUTROPHILS % 71.4 % (38.7-80.0); PLATELET COUNT 189 x10e3/uL (140-360); RED BLOOD COUNT 5.07 x10e6/uL (4.3-5.7); RED CELL DISTRIBUTION WIDTH 15.9 % (11.7-14.4)
[2018-02-13] MEDS ORDERED: LORAZEPAM INJ 2 MG/ML VIAL IV ONE (05:30)
[2018-02-13 05:58] LABS: BLOOD UREA NITROGEN 16 mg/dL (7-26); BUN/CREATININE RATIO 19 (6-25); CALCIUM 8.8 mg/dL (8.4-10.2); CARBON DIOXIDE 28 mmol/L (22-29); CHLORIDE 102 mmol/L (98-107); CREATININE, SERUM 0.83 mg/dL (0.72-1.25); EST GLOMERULAR FILTRATION RATE > 60 ML/MIN (60-); GLUCOSE 99 mg/dL (74-118); SODIUM 141 mmol/L (136-145)
[2018-02-13] MEDS: INSULIN REGULAR, HUMAN 100 UNIT/1 ML 3ML VIAL SQ SCH ×4 (07:30→21:00)
[2018-02-13] MEDS: SENNOSIDES 8.6 MG TAB PO SCH (09:00)
[2018-02-13] MEDS: TAMSULOSIN HCL 0.4 MG CAP PO SCH (09:00)
[2018-02-13] MEDS: MULTIVITAMINS/MINERALS TAB PO SCH (09:00)
[2018-02-13] MEDS: PANTOPRAZOLE SOD 40 MG TABEC PO SCH (09:00)
[2018-02-13] MEDS: MEMANTINE 10 MG TAB PO SCH ×2 (09:00→17:00)
[2018-02-13] MEDS: FINASTERIDE 5 MG TAB PO SCH (09:00)
[2018-02-13] MEDS: ASPIRIN 81 MG CHEW TAB PO SCH (09:00)
[2018-02-13] MEDS: FUROSEMIDE 20 MG TAB PO SCH ×2 (09:00→17:00)
[2018-02-13] MEDS: GABAPENTIN 100 MG CAP PO SCH ×3 (09:00→22:51)
[2018-02-13] MEDS: MUPIROCIN 2% OINT 22 GM TUBE TOP SCH (11:21)
[2018-02-13] MEDS: METOPROLOL TARTRATE 25 MG TAB PO SCH (12:00)
[2018-02-13] MEDS ORDERED: HYDRALAZINE HCL 20 MG/ML VIAL IV PRN (12:15)
[2018-02-13] MEDS: HYDROCODONE/APAP 5MG-325MG TAB PO PRN ×2 (12:30→23:17)
[2018-02-13] MEDS ORDERED: SODIUM CHLORIDE 0.9% 1000ML 1,000 ML ONE (12:59)
[2018-02-13] MEDS ORDERED: SODIUM CHLORIDE 0.9% 500ML 500 ML ONE (13:01)
--- NOTE | 2018-02-13 16:31 | Progress Note ---
DATE: February 13, 2018 SUBJECTIVE: Patient is doing well today. He was very combative last night, likely due to some sundowning. Seems like the patient has some underlying Alzheimer's dementia with some sundowning, but the family states that he has a better memory than them. Patient was confused since the day of admission, and I feel like the patient likely has underlying dementia. He currently lives in a group home for the last 1 year now. Patient now is in restraints because he is very combative, requiring some Ativan and Seroquel for agitation. 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 OBJECTIVE VITAL SIGNS: Temperature is 96.5, pulse 82, respiratory rate is 16, blood pressure 180/70. LAB FINDINGS: Show white count is 6.6, hemoglobin 15.4, hematocrit of 47, platelets of 189. MICROBIOLOGY: There was 1 of 2 coag-negative staph, likely a contaminant. Patient is asymptomatic as well, afebrile. White count is normal. IMAGING STUDIES: None. OPERATIVE REPORT: Patient had an abdominal aorta catheter placement with an abdominal aortogram with selective catheter placement from the left femoral artery to the right superficial femoral artery. Primary thrombectomy of the right superficial femoral artery was performed. Initiation of a transcatheter lysis was performed. PHYSICAL EXAMINATION GENERAL: Not in acute distress currently. He is calm and cooperative on restraints but gets very combative on examination. HEENT: Head: Normocephalic, atraumatic. Eyes: Pupils equally round and reactive to light bilaterally. Extraocular movements intact bilaterally. Neck was supple with good range of motion. Throat: No evidence of any erythema or exudates in the posterior pharynx. Has poor dentition. PULMONARY: Clear to auscultation bilaterally. No wheezing, no rales, no rhonchi, no crackles appreciated. CARDIOVASCULAR: Positive S1/S2. No murmurs, rubs or gallops appreciated. ABDOMEN: Soft, nondistended, nontender to palpation. Bowel sounds present. MUSCULOSKELETAL: Strength is 5/5 throughout. No evidence of any musculoskeletal deficit on examination. No weakness appreciated. NEUROLOGICAL: Cranial nerves 2-12 grossly intact. No evidence of any neurological deficit on exam. SKIN: Intact. Warm to touch. Good capillary refill. PSYCHIATRIC: Normal affect and mood. EXTREMITIES: No edema. Good range of motion throughout. IMPRESSION 1. Right lower extremity acute ischemic limb, status post right lower extremity angiogram with arterectomy performed on February 12, 2018, with sheath removed on February 13, 2018, and likely no more further intervention needed with good flow now. 2. Dementia with sundowning. 3. Hypertension. 4. Peripheral neuropathy. 5. Chronic pain syndrome. PLAN: At this time patient seems to be much more calm, and it seems like all the studies have been completed by Cardiology. We are going to continue with restraints because the patient is very combative and agitated, requiring some Seroquel and Ativan. We will continue with Seroquel and Ativan as needed and continue with restraints as well. His blood pressure is elevated, likely due to his agitation and refusal of medications. We will start him back on his oral antihypertensive medications as well and encourage that. It seems that the patient may be doing well tomorrow and would be likely to be discharged. We will also get a.m. labs. Job#: [id number] EV
--- NOTE | 2018-02-13 18:26 | Progress Note ---
DATE: February 13, 2018 CARDIOLOGY PROGRESS NOTE SUBJECTIVE: The patient is confused. He was agitated overnight and had to be restrained. OBJECTIVE VITALS: Temperature 96.6 degrees, pulse 82, respiratory rate 16, blood pressure 180/70, and oxygen saturation 97% on room air. GENERAL: Awake but confused. No acute distress. LUNGS: Clear to auscultation bilaterally. No wheezes or crackles. CARDIOVASCULAR: Normal rate. Regular rhythm. No murmur. Normal S1 and S2. ABDOMEN: Soft and nontender. EXTREMITIES: No edema. Catheter present in left groin. CARDIAC MEDICATIONS 1. Metoprolol tartrate 25 mg p.o. daily. 2. Furosemide 20 mg p.o. b.i.d. 3. Aspirin 81 mg p.o. daily. LABS: WBC 6.69, hemoglobin 15.4, hematocrit 47.4, and platelets 189,000. Sodium 141, potassium 3, chloride 102, CO2 28, BUN 15, creatinine 0.83. Telemetry is normal sinus rhythm. IMPRESSION 1. Acute limb ischemia of the right lower extremity: Status post transcatheter lysis. 2. Peripheral arterial disease with prior transmetatarsal amputation bilaterally. 3. Hypertension. 4. Atrial fibrillation, on anticoagulation. 5. Dementia. RECOMMENDATIONS: Patient was planned for periphreal angiogram and removal of catheter and sheath today. Unfortunately, fish farm laborer is down due to technical difficulties after yesterday's power outage. Repeat peripheral angiogram cannot be done today. Sheath was therefore removed from the left groin. We will need to resume heparin drip 6 hours after hemostasis is achieved. Continue current cardiac medications otherwise. Monitor the patient on telemetry. Attempt to take the patient back to the fish farm laborer tomorrow if fish farm laborer is running again. Management of agitation per primary service. Thank you for this consult. We will continue to follow. Job#: [id number] ALFREDO PATEL
[2018-02-13] MEDS ORDERED: HEPARIN 25,000U/0.45% NS 250ML 250 ML ONE (20:50)
[2018-02-13] MEDS ORDERED: HEPARIN SOD (PORCINE) 1000 UNIT/ML SDV ONE (20:51)
[2018-02-13] MEDS ORDERED: HEPARIN SOD (PORCINE) 5,000 UNIT/ML VIAL ONE (20:51)
[2018-02-13] MEDS ORDERED: HEPARIN SOD (PORCINE) 5,000 UNIT/ML VIAL IV ONE (21:00)
[2018-02-13] MEDS: LATANOPROST(OPTH) 2.5 ML BTL OP SCH (21:00)
[2018-02-13] MEDS: HEPARIN 25,000 UNIT/D5W 250ML 250 ML IV SCH (21:59)
[2018-02-14] VITALS (84 sets, daily range): BP systolic 98–185; BP diastolic 38–89
--- NOTE | 2018-02-14 01:09 | Progress Note ---
DATE: February 14, 2018 CARDIOLOGY UPDATE NOTE Patient was initially planned for repeat peripheral angiogram today. Unfortunately, due to technical difficulties, the laborer livestock was nonfunctional. The left common femoral sheath therefore was removed at bedside. At shift change, the patient was noted to have loss of Dopplerable pulses in his left lower extremity with coolness to palpation. Patient was started on heparin drip and STAT arterial Doppler was obtained, which demonstrated complete occlusion of the right popliteal, posterior tibial, anterior tibial and dorsalis pedis arteries. There was a hematoma present near the left common femoral artery. The mid to distal femoral, popliteal, posterior tibial, anterior tibial and dorsalis pedis arteries on the left appeared to be occluded. On exam, the patient's left lower extremity is cold to the knee and the right lower extremity is cool to the mid calf. Acute limb ischemia suspected. Case was discussed with Dr. Clifford. As the laborer livestock is reported to be up and running again, the patient is planned to return to the laborer livestock later today for attempted revascularization. Continue heparin drip in the meantime. The patient's son who was at bedside was updated regarding the patient's condition as well as poor limb prognosis. Risks and benefits of peripheral angiogram were discussed with the patient's son who agrees to proceed. Keep patient NPO. Limb prognosis is poor. AM labs ordered. We will continue to follow. Job#: [id number] GUERO PATEL
[2018-02-14] MEDS: CLONAZEPAM 0.5 MG TAB PO PRN (01:25)
[2018-02-14 03:21] LABS: BASOPHILS % 0.2 % (0.0-1.0); HEMATOCRIT 39.1 % (38.2-49.6); HEMOGLOBIN 12.7 g/dL (14.0-18.0); LYMPHOCYTES # (AUTO) 0.7 (1.0-3.2); LYMPHOCYTES % 5.9 % (18.0-39.1); MEAN CORPUSCULAR HEMOGLOBIN 30.6 pg (28-32); MEAN CORPUSCULAR HGB CONC 32.5 g/dL (31-35); MEAN CORPUSCULAR VOLUME 94.2 fL (81-99); MONOCYTES % 8.3 % (4.4-11.3); NEUTROPHILS # (AUTO) 9.9 (2.1-6.9); NEUTROPHILS % 85.2 % (38.7-80.0); PLATELET COUNT 162 x10e3/uL (140-360); RED BLOOD COUNT 4.15 x10e6/uL (4.3-5.7); RED CELL DISTRIBUTION WIDTH 15.9 % (11.7-14.4)
[2018-02-14 03:33] LABS: INR 1.23; PROTHROMBIN TIME 14.6 seconds (11.9-14.5)
[2018-02-14 03:43] LABS: ALANINE AMINOTRANSFERASE 35 IU/L (0-55); ALBUMIN 2.7 g/dL (3.5-5.0); ALBUMIN/GLOBULIN RATIO 0.8 (0.8-2.0); ALKALINE PHOSPHATASE 211 IU/L (40-150); ANION GAP 17.8 mmol/L (8-16); BLOOD UREA NITROGEN 23 mg/dL (7-26); BUN/CREATININE RATIO 20 (6-25); CALCIUM 8.8 mg/dL (8.4-10.2); CARBON DIOXIDE 22 mmol/L (22-29); CHLORIDE 103 mmol/L (98-107); CREATININE, SERUM 1.13 mg/dL (0.72-1.25); EST GLOMERULAR FILTRATION RATE > 60 ML/MIN (60-); GLUCOSE 139 mg/dL (74-118); PARTIAL THROMBOPLASTIN TIME 106.1 seconds (23.8-35.5); POTASSIUM 3.8 mmol/L (3.5-5.1); SODIUM 139 mmol/L (136-145)
[2018-02-14] MEDS: INSULIN REGULAR, HUMAN 100 UNIT/1 ML 3ML VIAL SQ SCH ×4 (07:30→20:11)
[2018-02-14] MEDS: PANTOPRAZOLE SOD 40 MG TABEC PO SCH (09:00)
[2018-02-14] MEDS: FUROSEMIDE 20 MG TAB PO SCH ×2 (09:00→17:00)
[2018-02-14] MEDS: TAMSULOSIN HCL 0.4 MG CAP PO SCH (09:00)
[2018-02-14] MEDS: MEMANTINE 10 MG TAB PO SCH ×2 (09:00→17:00)
[2018-02-14] MEDS: FINASTERIDE 5 MG TAB PO SCH (09:00)
[2018-02-14] MEDS: METOPROLOL TARTRATE 25 MG TAB PO SCH (09:00)
[2018-02-14] MEDS: ASPIRIN 81 MG CHEW TAB PO SCH (09:00)
[2018-02-14] MEDS: SENNOSIDES 8.6 MG TAB PO SCH (09:00)
[2018-02-14] MEDS: MULTIVITAMINS/MINERALS TAB PO SCH (09:00)
[2018-02-14] MEDS: GABAPENTIN 100 MG CAP PO SCH ×3 (09:00→20:11)
[2018-02-14] MEDS: MORPHINE SULFATE INJ 4 MG/ML INJ IV PRN ×2 (09:10→14:54)
[2018-02-14] MEDS: MUPIROCIN 2% OINT 22 GM TUBE TOP SCH (10:22)
--- NOTE | 2018-02-14 11:44 | Progress Note ---
DATE: February 14, 2018 CARDIOLOGY PROGRESS NOTE SUBJECTIVE: No major events overnight. Remains confused. Left lower extremity sheath pulled with medium size hematoma and also cool left lower extremity [id number]. Heparin drip resumed. REVIEW OF SYSTEMS: Could not be performed due to altered mental status. OBJECTIVE VITAL SIGNS: Pulse 80, respiratory rate 20, blood pressure 146/53, and satting 97% on room air. GENERAL: Elderly man, in mild distress. CARDIOVASCULAR: Regular rate and rhythm. No murmurs, rubs, or gallops. EXTREMITIES: Right lower extremity palpable femoral pulse on the right, warm up until below the midpoint of the tilley where the extremity is cool. Left lower extremity femoral pulse is not palpable. There is a mild or medium size hematoma overlying the left femoral artery. No pulse is palpable below this level in the left lower extremity. Left lower extremity is cold and mottled below the level of the knee. Bilateral transmetatarsal amputations also noted which are old. LABORATORY DATA: Reviewed. IMAGING DATA: Reviewed. TELEMETRY DATA: Reviewed. ASSESSMENT AND PLAN 1. Acute limb ischemia of the right lower extremity, status post transcatheter lysis. 2. Acute limb ischemia of the left lower extremity. 3. Peripheral arterial disease with prior bilateral transmetatarsal amputations. 4. Hypertension. 5. Atrial fibrillation, on anticoagulation. 6. Dementia. RECOMMENDATIONS: Right lower extremity was thrombolysed. However, now the left lower extremity is cool and likely has acute ischemia [id number]. Plan is for peripheral angiography and intervention done by Dr. Ng later today. Continue IV heparin. Patient has known prior PAD and also has atrial fibrillation. Was off heparin drip for short period of time due to sheath removal and this may have precipitated either embolic or thrombotic occlusion and embolism of the left lower extremity small vessels. Prognosis of the left lower extremity is overall poor and he may need BKA eventually. We will continue to follow closely. Thank you for this consult. Job#: [id number] KRISTA
--- NOTE | 2018-02-14 17:46 | Progress Note ---
DATE: February 14, 2018 SUBJECTIVE: Patient now has left lower extremity cold extremity concerning for an arterial clot. He is scheduled later today for a lower extremity angiogram. I did speak with cardiology and they are concerned that he may need a BKA, possibly bilaterally. Patient is still very confused and occasionally would get very combative. OBJECTIVE VITAL SIGNS: Temperature is 98.1, pulse is 80, blood pressure 165/55, pulse ox 93% on room air. LABORATORY DATA: Lab findings show white count 11.2, hemoglobin 12.7, hematocrit of 39, and platelets of 162. Coagulation; PTT last one is 115.6. Chemistry; sodium 139, potassium 3.8, chloride 103, bicarb 22, anion gap of 17, BUN 23, creatinine is 1.1, calcium 8.8, total bilirubin is 2.2, AST 41, ALT 35, alk phos 211, total protein 6.2, albumin 2.7. MICROBIOLOGY: Blood cultures first one negative, second one was likely a contaminant. IMAGING STUDIES: None. PHYSICAL EXAMINATION GENERAL: Not in acute distress, alert and oriented x2, cooperative on examination. HEENT: Head, normocephalic, atraumatic. Eyes; pupils equal and reactive to light bilaterally. Extraocular movements are intact bilaterally. Throat; no evidence of any erythema or exudates in the posterior pharynx. Has poor dentition. NECK: Supple with good range of motion. PULMONARY: Clear to auscultation bilaterally. No wheezing, no rales, no rhonchi, no crackles appreciated. CARDIOVASCULAR: Positive S1, S2. No murmurs, rubs, or gallops appreciated. ABDOMEN: Soft, nondistended, and nontender to palpation. Bowel sounds present. MUSCULOSKELETAL: Strength is 5/5 throughout. NEUROLOGICAL: He is alert and oriented x2. SKIN: Intact. Warm to touch. Good capillary refill. PSYCHIATRIC: Normal affect and mood. EXTREMITIES: He has left lower extremity cold sensation appreciated. IMPRESSION 1. Right lower extremity acute ischemic limb, status post right lower extremity angiogram and arterectomy performed on February 12, 2018, with sheath removed on February 13, 2018, now with a left lower extremity cold extremity. 2. Dementia with sundowning. 3. Hypertension. 4. Peripheral neuropathy. 5. Chronic pain syndrome. PLAN: At this time, he is scheduled for lower extremity angiogram bilaterally later today in the cath room. Now, his left lower extremity has very cold sensation and very concerning for possible needing a BKA. I discussed this with cardiology, but we will await for the final findings. We will continue with Seroquel for agitation. Resume same home medications. I suspect the patient likely has some underlying dementia that has been ongoing for several years, but the family is in denial and refuses to accept it. At this time, we will continue with same plan of care. We will continue to monitor. Job#: [id number] KRISTA
[2018-02-14] MEDS: HEPARIN 25,000 UNIT/D5W 250ML 250 ML IV SCH (20:10)
[2018-02-14] MEDS: LATANOPROST(OPTH) 2.5 ML BTL OP SCH (20:11)
[2018-02-15] VITALS (45 sets, daily range): BP systolic 115–172; BP diastolic 37–139
[2018-02-15] MEDS: MORPHINE SULFATE INJ 4 MG/ML INJ IV PRN ×2 (04:30→12:54)
[2018-02-15 05:15] LABS: BASOPHILS % 0.2 % (0.0-1.0); EOSINOPHILS % 0.5 % (0.0-6.0); HEMATOCRIT 36.9 % (38.2-49.6); HEMOGLOBIN 12.1 g/dL (14.0-18.0); LYMPHOCYTES # (AUTO) 0.6 (1.0-3.2); LYMPHOCYTES % 7.5 % (18.0-39.1); MEAN CORPUSCULAR HEMOGLOBIN 30.9 pg (28-32); MEAN CORPUSCULAR HGB CONC 32.8 g/dL (31-35); MEAN CORPUSCULAR VOLUME 94.1 fL (81-99); MONOCYTES # (AUTO) 0.7 (0.2-0.8); MONOCYTES % 8.6 % (4.4-11.3); NEUTROPHILS # (AUTO) 6.7 (2.1-6.9); NEUTROPHILS % 82.8 % (38.7-80.0); PLATELET COUNT 194 x10e3/uL (140-360); RED BLOOD COUNT 3.92 x10e6/uL (4.3-5.7); RED CELL DISTRIBUTION WIDTH 16.1 % (11.7-14.4)
[2018-02-15 07:28] LABS: ALANINE AMINOTRANSFERASE 45 IU/L (0-55); ALBUMIN 2.8 g/dL (3.5-5.0); ALBUMIN/GLOBULIN RATIO 0.8 (0.8-2.0); ALKALINE PHOSPHATASE 214 IU/L (40-150); ANION GAP 14.4 mmol/L (8-16); BLOOD UREA NITROGEN 23 mg/dL (7-26); BUN/CREATININE RATIO 25 (6-25); CALCIUM 8.8 mg/dL (8.4-10.2); CARBON DIOXIDE 27 mmol/L (22-29); CHLORIDE 103 mmol/L (98-107); CREATININE, SERUM 0.92 mg/dL (0.72-1.25); EST GLOMERULAR FILTRATION RATE > 60 ML/MIN (60-); GLUCOSE 104 mg/dL (74-118); POTASSIUM 3.4 mmol/L (3.5-5.1); SODIUM 141 mmol/L (136-145)
[2018-02-15] MEDS: INSULIN REGULAR, HUMAN 100 UNIT/1 ML 3ML VIAL SQ SCH ×3 (07:30→16:30)
[2018-02-15] MEDS ORDERED: HEPARIN SOD (PORCINE) 1000 UNIT/ML 30ML ONE (08:27)
[2018-02-15] MEDS ORDERED: HEPARIN SOD/SOD CHLORIDE 2,000 ML ONE (08:27)
[2018-02-15] MEDS ORDERED: LIDOCAINE HCL 2% LOCAL 20 ML VIAL ONE (08:27)
[2018-02-15] MEDS ORDERED: IOPAMIDOL 300MG/ML 100 ML INFUS..BTL IV ONE (08:28)
[2018-02-15] MEDS ORDERED: SODIUM CHLORIDE 0.9% 1000ML 0 ML ONE (08:28)
[2018-02-15] MEDS ORDERED: MIDAZOLAM HCL 2 MG/2 ML VIAL ONE (08:28)
[2018-02-15] MEDS ORDERED: NITROGLYCERIN/D5W 200 MCG/ML 250 ML ONE (08:28)
[2018-02-15] MEDS ORDERED: FENTANYL CITRATE/PF 100MCG/2 ML INJ ONE (08:29)
[2018-02-15] MEDS: MULTIVITAMINS/MINERALS TAB PO SCH (08:40)
[2018-02-15] MEDS: FINASTERIDE 5 MG TAB PO SCH (08:40)
[2018-02-15] MEDS: TAMSULOSIN HCL 0.4 MG CAP PO SCH (08:40)
[2018-02-15] MEDS: MEMANTINE 10 MG TAB PO SCH ×3 (08:40→18:18)
[2018-02-15] MEDS: METOPROLOL TARTRATE 25 MG TAB PO SCH (08:40)
[2018-02-15] MEDS: ASPIRIN 81 MG CHEW TAB PO SCH (08:40)
[2018-02-15] MEDS: FUROSEMIDE 20 MG TAB PO SCH ×3 (08:40→18:18)
[2018-02-15] MEDS: GABAPENTIN 100 MG CAP PO SCH ×3 (08:40→18:18)
[2018-02-15] MEDS: PANTOPRAZOLE SOD 40 MG TABEC PO SCH (08:41)
[2018-02-15] MEDS: SENNOSIDES 8.6 MG TAB PO SCH (08:41)
[2018-02-15] MEDS: MUPIROCIN 2% OINT 22 GM TUBE TOP SCH (08:41)
[2018-02-15] MEDS ORDERED: ALTEPLASE 50 MG/VIAL (29 MILLION IU) IV ONE (09:21)
--- NOTE | 2018-02-15 10:56 | Operative Report ---
DATE OF PROCEDURE: February 15, 2018 PROCEDURE: Cardiac catheterization. INDICATIONS FOR PROCEDURE: Acute limb ischemia. PRE-SEDATION ASSESSMENT: Medical history, social history, previous experience with anesthesia was reviewed and documented in the preoperative record. Results of irrelevant diagnostic studies were reviewed. Planned choice of anesthesia, risks, complications, benefits, and alternatives were discussed. Patient deemed an appropriate candidate for moderate sedation. CONSENT: The benefits, risks, complications, and alternatives of the procedure were discussed with the patient and his family. Informed consent was obtained prior to the procedure. MEDICATIONS: Please see nursing notes for medications administered during the procedure. PROCEDURE: Patient was brought to the cardiac catheterization laboratory in a fasting state. Right groin was prepped and draped in a sterile fashion. One percent lidocaine was used to infiltrate the right groin over the right common femoral artery. A 6-Cymro sheath was inserted in the right common femoral artery using the modified Seldinger technique and micropuncture access equipment. Peripheral angiography and runoff of the right lower extremity was performed through the 6-Cymro sheath. A glide Advantage wire and Omni flush catheter were used to place the Omni flush catheter in the abdominal aorta. Abdominal aortogram with runoff was performed for angiography of the iliac. The glide Advantage wire was then used to go through the Omni flush catheter in an up and over fashion into the left common iliac and external iliac and common femoral arteries. The Omni flush catheter was advanced over the wire to the left common femoral artery. Further angiography with digital subtraction imaging was performed of the left lower extremity. After reviewing the angiogram carefully and discussing it with my partner, Dr. Clifford, decision was made to transfer the patient to [facility] for vascular surgery consultation and intervention. All catheters were moved over a guidewire. Exit site was closed using ProGlide suture closure. The case ended without any complications. Estimated blood loss was approximately 20 mL. FINDINGS: Bilateral common iliacs and external iliacs are tortuous. However, there is no significant obstructive peripheral arterial disease. The right [employer]IT [employer]ER and proximal and mid-SFA are patent. There is diffuse plaquing of the mid-SFA and mid-SFA is completely occluded in the middistal portion. There is only a small vessel collateral runoff with very small area of reconstitution all the way in the popliteal artery in a very delayed fashion. On the left, the left common femoral artery is patent and without significant stenosis. There is a very small left profunda that is patent. 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 There is no flow into the SFA beyond this pseudoaneurysmal segments. Of note, this pseudoaneurysmal segment is well below the access site from previous catheterization. The occlusion of the SFA here is likely acute as there is very little flow below the knee. The DSA and waiting for runoff for a long time. COMPLICATIONS: None. SPECIMEN REMOVED: None. IMPLANTS: ProGlide vascular closure. ESTIMATED BLOOD LOSS: 20 mL. RECOMMENDATIONS 1. Resume heparin drip. No bolus. 2. Transferred to vascular surgery, at [facility]. Job#: [id number] ALFREDO
[2018-02-15] MEDS ORDERED: SODIUM CHLORIDE 0.9% 1000ML 1,000 ML IV SCH (16:15)
--- NOTE | 2018-02-15 17:37 | Progress Note ---
DATE: February 15, 2018 SUBJECTIVE: The patient is in the process of being transferred to [facility] to have a vascular surgery evaluate his lower extremities. It seems that the patient may need amputation [id number] bilaterally. Patient is complaining of left lower extremity pain. He also has a headache at the current moment. We will give him Tylenol. Currently, he is awake, alert, and talkative. His family is at bedside with no concerns. OBJECTIVE VITAL SIGNS: He is afebrile. Temperature is 98, pulse 80, respiratory rate 16, blood pressure 161/55, and his pulse oxygen is 97% on room air. LAB FINDINGS: Show white count of 8.1, hemoglobin 12, hematocrit 37, and platelets of 194. Chemistry; sodium 141, potassium 3.4, chloride 103, bicarb 27, anion gap of 14, BUN is 23, creatine is 0.92, glucose is 104. His total bilirubin is 2.4, AST 53, ALT 45, alk phos 214, albumin 2.8. MICROBIOLOGY: Blood cultures, no growth. One of two was coag-negative staph likely contaminate. IMAGING STUDIES: None. PHYSICAL EXAM GENERAL: Not in acute distress. He is alert and oriented x3, cooperative on examination. HEENT: Head is normocephalic and atraumatic. Eyes: Pupils equal, round and reactive to light bilaterally. Extraocular movements intact bilaterally. NECK: Supple. Good range of motion. Throat with no evidence of any erythema or exudates in the posterior pharynx. Has poor dentition. PULMONARY: Clear to auscultation bilaterally. No wheezing. No rales. No rhonchi. No crackles appreciated. CARDIOVASCULAR: Positive S1 and S2. No murmurs, rubs or gallops appreciated. ABDOMEN: Soft, nondistended and nontender to palpation. Bowel sounds present. MUSCULOSKELETAL: Strength is 5/5 throughout. No evidence of any muscle deficit on examination. No muscle weakness appreciated. NEUROLOGICAL: Cranial nerves II-XII are grossly intact. No evidence of any neurological deficits on exam. SKIN: Intact. Warm to touch. Good cap refill. PSYCHIATRIC: Normal affect and mood. EXTREMITIES: No edema. Good range of motion throughout. IMPRESSION 1. Right lower extremity acute ischemic limb, status post right lower extremity angiogram with atherectomy performed on February 12, 2018, with sheath removed on February 13, 2018, now with left lower extremity cold extremity, which may need bilateral below knee amputation according to cardiology. 2. Dementia with sundowning. 3. Hypertension. 4. Peripheral neuropathy. 5. Chronic pain syndrome. PLAN: At this time, there is no further intervention at this facility and we will likely need to transfer the patient to [facility] to have a vascular surgery evaluate the extremities. This was initiated by cardiology which is likely the best option for this gentleman. We are going to continue with same plan of care. His urine output is okay, but his urine looks very dark in which I will start on IV fluids. He is currently n.p.o. for possible surgery, but I highly doubt that this will occur late in this day. At this time, we will continue with heparin drip, resume same home medications with no changes and once accepted, he will be transferred to [facility], which I will accept at that facility. Otherwise, we will continue with same plan of care. Job#: [id number] CORIN
[2018-02-15] MEDS: CLONAZEPAM 0.5 MG TAB PO PRN (18:19)
--- NOTE | 2018-02-16 14:18 | Discharge Summary ---
FINAL DISCHARGE DIAGNOSES 1. Right lower extremity acute ischemic limb, status post right lower extremity angiogram with arterectomy performed on February 12, 2018, which sheath removed on February 13, 2018, now with left lower extremity cold extremity concerning for possible bilateral below knee amputation according to cardiology. 2. Dementia with sundowning. 3. Hypertension. 4. Peripheral neuropathy. 5. Chronic pain syndrome. VITAL SIGNS: Temperature is 97.5, pulse 80, respiratory rate 16, blood pressure 147/56, pulse ox is 98% on room air. LAB FINDINGS: Show white count of 8.1, hemoglobin 12, hematocrit 37, and platelets of 194,000. Chemistry: Sodium 141, potassium 3.4, chloride 103, bicarb 27, anion gap of 14, BUN is 22, creatinine is 0.92, glucose is 104. Albumin is 2.8. His AST is 53, ALT 45, total bilirubin 2.4. MICROBIOLOGY: He had 1 of 2 blood cultures positive for coag-negative staph, likely a contaminant. Patient was stable with no other issues. IMAGING STUDIES: He had bilateral lower extremity angiogram performed with only angioplasty. HOSPITAL COURSE: This is an 82-year-old male with bilateral TMAs, who comes in with right lower extremity ischemic pain and cold sensation in which cardiology was consulted. Patient was admitted for further evaluation. Patient had a right lower extremity angiogram on February 12, 2018, with arterectomy performed with angioplasty only and arterectomy. He had his sheath is removed on February 13, 2018. Two days after the procedure, the patient started having a left lower extremity cold extremity concerning for an arterial clot. The patient had another angiogram of the lower extremities performed on February 15, 2018, and that showed significant disease in the left lower extremity and recommended transfer to [facility] for vascular surgery evaluation. According to the findings, the patient had bilateral common iliacs and external iliacs that were tortuous. There was right [employer]ICAL [employer]YS[employer] RESEARCHER and proximal mid SFA patent. There was diffuse plaquing in the mid SFA and mid SFA was completely occluded in the middistal portion. It was felt that the patient would benefit from transfer to a higher level of care to a vascular surgery evaluation. The patient was denied transfer to [facility] and instead was accepted to [facility]. Patient was then transferred on February 15, 2018. Patient was stable prior to discharge. There were no other complaints. On the day of discharge, vital signs stable, labs were stable. The patient was seen, evaluated and examined thoroughly on the day of discharge. No other complaints. Patient verbalized understanding and agrees to plan of care and to follow up accordingly as an outpatient with his primary care physician in 1 week. He will be transferred to [facility] for further management and care. MEDICATIONS: See med reconciliation form. DISPOSITION: Transferred to [facility] in the [facility] for higher level of care and seeing vascular surgery. CONDITION: Stable. DIET: Heart-healthy. In the event of any worsening symptoms, the patient was advised to come back to the ED for further evaluation. Discharge summary took greater than 35 minutes. FABIAN OLEARY MD Job#: [id number] ALFREDO
== END 2018-02-15 20:55 | disposition short-term general hospital (02) | DRG 271 ==
LOC: ER 02:00 → ERHOLD 05:55 → MED/SURG3 14:10 → ICU 02-12 16:45
PROVIDERS: ADMIT Internal Medicine; ATTEND Internal Medicine
PROC: B41D1ZZ Fluoroscopy of Aorta and Bilateral Lower Extremity Arteries using Low Osmolar Contrast (ICD-10-PCS; principal; 2018-02-12)
PROC: B41D1ZZ Fluoroscopy of Aorta and Bilateral Lower Extremity Arteries using Low Osmolar Contrast (ICD-10-PCS; 2018-02-15)
PROC: 3E05317 Introduction of Other Thrombolytic into Peripheral Artery, Percutaneous Approach (ICD-10-PCS; 2018-02-15)
PROC: 04CK3ZZ Extirpation of Matter from Right Femoral Artery, Percutaneous Approach (ICD-10-PCS; 2018-02-15)
DX: E11.51 Type 2 diabetes mellitus with diabetic peripheral angiopathy without gangrene (principal); F05 Delirium due to known physiological condition; I99.8 Other disorder of circulatory system; I73.9 Peripheral vascular disease, unspecified; G89.4 Chronic pain syndrome; I10 Essential (primary) hypertension; G62.9 Polyneuropathy, unspecified; F03.90 Unspecified dementia, unspecified severity, without behavioral disturbance, psychotic disturbance, mood disturbance, and anxiety; Z89.432 Acquired absence of left foot; Z89.431 Acquired absence of right foot; I72.4 Aneurysm of artery of lower extremity; I70.293 Other atherosclerosis of native arteries of extremities, bilateral legs; I48.2 Chronic atrial fibrillation; Z79.01 Long term (current) use of anticoagulants; K74.60 Unspecified cirrhosis of liver; R41.841 Cognitive communication deficit; Z79.4 Long term (current) use of insulin
CPT/HCPCS: 36247; 36415; 37211; 75625; 75710; 75716; 80048; 80053; 80061; 82948; 83605; 85025; 85610; 85730; 87040; 87071; 87205; 93005; 93925; 93971; 99285; C1769; J1644; J2001; J2060; J2250; J2270; J2997; J7030; J7040; J7050; Q9967